=== PATIENT | female | born 1970 | race African-American/Black ===

== ENCOUNTER → 2017-07-24 | Outpatient (CLI) | payer BC ==
--- NOTE | 2017-07-24 09:15 | RADIOLOGY REPORT (SQ) ---
EXAM DESCRIPTION: MRI LUMBAR SPINE WITHOUT COMPLETED DATE/TIME: 07/24/2017 8:43 am REASON FOR STUDY: LUMBAGO WITH SCIATICA, RIGHT SIDE M54.41 LUMBAGO WITH SCIATICA, RIGHT SIDE COMPARISON: None. TECHNIQUE: Sagittal and Axial imaging includes T1, T2, STIR and gradient echo sequences. Coronal T2/ HASTE imaging. LIMITATIONS: None. FINDINGS: VISUALIZED UPPER ABDOMEN: Limited evaluation. No acute or suspicious findings suggested. SEGMENTATION: No transitional anatomy. The lowest well-developed disc space is labeled L5-S1. ALIGNMENT: Mild grade 1 listhesis at L4-5. VERTEBRAE: Intact. BONE MARROW: Normal. No marrow replacement or reactive changes. DISC SIGNAL: Normal. No significant abnormal signal or loss of height. POSTERIOR ELEMENTS: No pars defect appreciated. Lower lumbar degenerative facet overgrowth. HARDWARE: None in the spine. CORD AND CONUS: Normal in size and signal intensity. Conus at the appropriate level. SOFT TISSUES: No aortic aneurysm seen. No bulky retroperitoneal adenopathy or mass. No paraspinal mas s or fluid. L1-L2: No significant spinal stenosis or exit foraminal stenosis. L2-L3: No significant spinal stenosis or exit foraminal stenosis. L3-L4: No significant spinal stenosis or exit foraminal stenosis. L4-L5: Exuberant facet degenerative overgrowth. Mild central narrowing. L5-S1: Facet overgrowth. No central stenosis. Patent neural foramina. LOWER THORACIC: Incompletely imaged. No stenosis seen. SACRUM: Visualized upper sacrum intact. OTHER: No other significant findings. IMPRESSION: 1. Facet arthropathy, most pronounced at L4-5. Minimal grade 1 listhesis at this level . No evidence of significant spinal stenosis, however. Generally maintained discs throughout the john mbar and lower thoracic region. TECHNICAL DOCUMENTATION: JOB ID: [id number] [employer]- All Rights Reserved
== END ==
LOC: RAD 07:49
PROVIDERS: ATTEND Nurse Practitioner
DX: M54.41 Lumbago with sciatica, right side (principal); G89.29 Other chronic pain
CPT/HCPCS: 72148

== ENCOUNTER 2017-12-26 10:36 | Inpatient (IN) | payer BC ==
[2017-12-26] MEDS ORDERED: LIDOCAINE 2% VISCOUS SOLN 20 ML UDCUP PO ONE (11:11)
[2017-12-26] MEDS ORDERED: METOCLOPRAMIDE HCL ORAL SOLN 10 MG/10 ML UDCUP PO ONE (11:11)
[2017-12-26] MEDS ORDERED: IPRATROPIUM/ALBUTEROL 0.5-2.5 MG/3 ML AMPUL NEB ONE (11:11)
[2017-12-26] MEDS ORDERED: MAG HYDROX/AL HYDROX/SIMETH SUSP 30 ML UDCUP PO ONE (11:11)
[2017-12-26] MEDS ORDERED: PREDNISONE 20 MG TABLET PO ONE (11:13)
--- NOTE | 2017-12-26 11:15 | ER Document Report ---
ED General - General Chief Complaint: Chest Pain Stated Complaint: CHEST PAIN Time Seen by Provider: 12/26/17 11:11 Notes: Chief complaint: Epigastric pain History of complain:( obtained from----patient) 47 years old female with a history of allergic asthma, GERD, presents today with an episode of epigastric pain described as 5/10 prior to arrival, now 3/10 in intensity. It is burning in nature spreading substernally. Associated with nausea no vomiting. Denies any precordial pain left arm numbness tingling sensation. Denies any other constitutional symptoms. Onset: Since this morning Duration: Last few hours Severity: Mild to moderate Quality: Burning to dull Context: History of GERD Exacerbating factor and relieving factors: REVIEW OF SYSTEMS: CONSTITUTIONAL : Denies fever, chills, or sweats. Denies recent illness. EENT: Denies eye, ear, throat, or mouth pain or symptoms. Denies nasal or sinus congestion or discharge. Denies throat, tongue, or mouth swelling or difficulty swallowing. CARDIOVASCULAR: Denies chest pain. Denies palpitations or racing or irregular heart beat. Denies ankle edema. RESPIRATORY: Denies cough, cold, or chest congestion. Denies shortness of breath, difficulty breathing, or wheezing. GASTROINTESTINAL: Denies distention. Denies nausea, vomiting, or diarrhea. Denies blood in vomitus, stools, or per rectum. Denies black, tarry stools. Denies constipation. GENITOURINARY: Denies difficulty urinating, painful urination, burning, frequency, blood in urine, or discharge. FEMALE GENITOURINARY: Denies vaginal bleeding, heavy or abnormal periods, irregular periods. Denies vaginal discharge or odor. MUSCULOSKELETAL: Denies back or neck pain or stiffness. Denies joint pain or swelling. SKIN: Denies rash, lesions or sores. HEMATOLOGIC : Denies easy bruising or bleeding. LYMPHATIC: Denies swollen, enlarged glands. NEUROLOGICAL: Denies confusion or altered mental status. Denies passing out or loss of consciousness. Denies dizziness or lightheadedness. Denies headache. Denies weakness or paralysis or loss of use of either side. Denies problems with gait or speech. Denies sensory loss, numbness, or tingling. Denies seizures. PSYCHIATRIC: Denies anxiety or stress. Denies depression, suicidal ideation, or homicidal ideation. ALL OTHER SYSTEMS REVIEWED AND NEGATIVE. PHYSICAL EXAMINATION: GENERAL: Well-appearing, well-nourished and in no acute distress. Not seems to be in any acute distress HEAD: Atraumatic, normocephalic. EYES: Pupils equal round and reactive to light, extraocular movements intact, conjunctiva are normal. ENT: Nares patent, oropharynx clear without exudates. Moist mucous membranes. NECK: Normal range of motion, supple without lymphadenopathy LUNGS: Breath sounds clear to auscultation bilaterally and equal. No rales or rhonchi but diffuse expiratory wheeze mild to moderate HEART: Regular rate and rhythm without murmurs ABDOMEN: Soft, epigastric tenderness, nondistended abdomen. No guarding, no rebound. No masses appreciated. Examination of genitals-deferred Musculoskeletal: Normal range of motion, no pitting or edema. No cyanosis. NEUROLOGICAL: Cranial nerves grossly intact. Normal speech, normal gait. Normal sensory, motor exams PSYCH: Normal mood, normal affect. SKIN: Warm, Dry, normal turgor, no rashes or lesions noted. Dictation was performed using [employer] voice recognition software TRAVEL OUTSIDE OF THE [place] IN LAST 30 DAYS: No - Related Data Allergies/Adverse Reactions: clarithromycin [From Biaxin] Allergy (Verified 12/26/17 10:47) Past Medical History - Social History Smoking Status: Never Smoker Chew tobacco use (# tins/day): No Drug Abuse: None Family History: Reviewed & Not Pertinent Patient has suicidal ideation: No Patient has homicidal ideation: No Pulmonary Medical History: Reports: Hx Bronchitis, Hx Pneumonia Renal/ Medical History: Denies: Hx Peritoneal Dialysis Past Surgical History: Reports: Hx Section - 3, Hx Cholecystectomy, Hx Hysterectomy Physical Exam - Vital signs Vitals: Temp Pulse Resp BP Pulse Ox 97.7 F 73 18 159/91 H 96 12/26/17 10:50 12/26/17 10:50 12/26/17 10:50 12/26/17 10:50 12/26/17 10:50 Course - Vital Signs Vital signs: Temp Pulse Resp BP Pulse Ox 97.3 F 79 18 142/87 H 95 12/26/17 17:51 12/26/17 17:51 12/26/17 17:51 12/26/17 17:51 12/26/17 17:51 - Laboratory Result Diagrams: 12/26/17 11:50 12/26/17 11:50 Laboratory results interpreted by me: 12/26/17 12/26/17 12/26/17 11:50 11:50 11:50 WBC 18.6 H RBC 5.56 H Hgb 16.0 H Hct 49.4 H RDW 14.1 H Absolute Neutrophils 12.3 H Absolute Basophils 0.3 H BUN 23 H Glucose 131 H Calcium 10.8 H Total Protein 8.3 H Triglycerides 219 H Cholesterol 212.26 H VLDL Cholesterol 43.8 H Lipase 1273.3 H Discharge - Discharge Clinical Impression: Acute pancreatitis Qualifiers: Pancreatitis type: unspecified pancreatitis type Acute pancreatitis complication: unspecified Qualified Code(s): K85.90 - Acute pancreatitis without necrosis or infection, unspecified Condition: Good Disposition: ADMITTED INPATIENT
--- NOTE | 2017-12-26 12:10 | RADIOLOGY REPORT (SQ) ---
EXAM DESCRIPTION: CHEST 2 VIEWS COMPLETED DATE/TIME: 12/26/2017 11:47 am REASON FOR STUDY: Chest pain COMPARISON: 08/06/2015, 03/04/2008 EXAM PARAMETERS: NUMBER OF VIEWS: two views TECHNIQUE: Digital Frontal and Lateral radiographic views of the chest acquired. RADIATION DOSE: NA LIMITATIONS: none FINDINGS: LUNGS AND PLEURA: No opacities, masses or pneumothorax. No pleural effusion. MEDIASTINUM AND HILAR STRUCTURES: No masses or contour abnormalities. HEART AND VASCULAR STRUCTURES: Heart normal size. No evidence for failure. BONES: No acute findings. HARDWARE: None in the chest. OTHER: No other significant finding. IMPRESSION: NO ACUTE RADIOGRAPHIC FINDING IN THE CHEST. TECHNICAL DOCUMENTATION: JOB ID: [id number] [employer]- All Rights Reserved Reading location - IP/workstation name: [email or web address]
[2017-12-26 12:46] LABS: CREATINE KINASE MB 1.26 ng/mL (<4.55)
[2017-12-26 12:48] LABS: TROPONIN I < 0.012 ng/mL
--- NOTE | 2017-12-26 13:12 | ER Document Report ---
ED Cardiac - General Chief Complaint: Chest Pain Stated Complaint: CHEST PAIN Time Seen by Provider: 12/26/17 11:11 Notes: 47-year-old female patient to the emergency department chief complaint of chest pain. Chest pain located in the epigastric region. Radiates up into her chest. Started today. [place] like she was going to pass out but did not. Was sweaty. States that over the last month she has been having a large amount of night sweats but has been contributing to menopause. This seems to make it better or worse. Does not smoke drink or do drugs. Denies any major medical problems. TRAVEL OUTSIDE OF THE [place] IN LAST 30 DAYS: No - HPI Patient complains to provider of: Chest pain Use of: denies: Alcohol, Amphetamines, Bath salts, Caffeine, Cocaine, Decongestants, Other Was the onset of pain: Gradual Quality of pain: Intermittent, Sharp - Related Data Allergies/Adverse Reactions: clarithromycin [From Biaxin] Allergy (Verified 12/26/17 10:47) Past Medical History - General Information source: Patient - Social History Smoking Status: Former Smoker Chew tobacco use (# tins/day): No Frequency of alcohol use: None Drug Abuse: None Lives with: Spouse/Significant other Family History: Reviewed & Not Pertinent Patient has suicidal ideation: No Patient has homicidal ideation: No Pulmonary Medical History: Reports: Hx Bronchitis, Hx Pneumonia Renal/ Medical History: Denies: Hx Peritoneal Dialysis Past Surgical History: Reports: Hx Section - 3, Hx Cholecystectomy, Hx Hysterectomy Review of Systems - Review of Systems Constitutional: Diaphoresis. denies: Chills, Fever, Malaise EENT: No symptoms reported Cardiovascular: Chest pain. denies: Palpitations, Heart racing Respiratory: No symptoms reported Gastrointestinal: Abdominal pain. denies: Diarrhea, Nausea, Vomiting Genitourinary: No symptoms reported Female Genitourinary: No symptoms reported Musculoskeletal: No symptoms reported Skin: No symptoms reported Hematologic/Lymphatic: No symptoms reported Neurological/Psychological: No symptoms reported Physical Exam - Vital signs Vitals: Temp Pulse Resp BP Pulse Ox 97.7 F 73 18 159/91 H 96 12/26/17 10:50 12/26/17 10:50 12/26/17 10:50 12/26/17 10:50 12/26/17 10:50 Interpretation: Normal - General General appearance: Appears well, Alert - HEENT Head: Normocephalic, Atraumatic Eyes: Normal Pupils: PERRL - Respiratory Respiratory status: No respiratory distress Chest status: Nontender Breath sounds: Normal Chest palpation: Normal - Cardiovascular Rhythm: Regular Heart sounds: Normal auscultation Murmur: No - Abdominal Inspection: Normal Distension: No distension Bowel sounds: Normal Tenderness: Tender, Other - Mild tenderness to palpation in the epigastric region. No guarding. No rebound. Organomegaly: No organomegaly - Back Back: Normal, Nontender - Extremities General upper extremity: Normal inspection, Nontender, Normal color, Normal ROM , Normal temperature General lower extremity: Normal inspection, Nontender, Normal color, Normal ROM , Normal temperature, Normal weight bearing. No: Nataliia's sign - Neurological Neuro grossly intact: Yes Cognition: Normal Orientation: AAOx4 Enrrique Coma Scale Eye Opening: Spontaneous Enrrique Coma Scale Verbal: Oriented [place] Coma Scale Motor: Obeys Commands Enrrique Coma Scale Total: 15 Speech: Normal Motor strength normal: LUE, RUE, LLE, RLE Sensory: Normal - Psychological Associated symptoms: Normal affect, Normal mood - Skin Skin Temperature: Warm Skin Moisture: Dry Skin Color: Normal Course - Re-evaluation Re-evalutation: 12/26/17 15:05 Patient with elevated WBC count and elevated lipase. Consistent with pancreatitis. Will add CT scan, lipid panel. Will consult with hospitalist for admission at this time. Patient is n.p.o. - Vital Signs Vital signs: Temp Pulse Resp BP Pulse Ox 97.7 F 73 21 H 140/84 H 93 12/26/17 10:50 12/26/17 10:50 12/26/17 14:00 12/26/17 13:00 12/26/17 14:00 - Laboratory Result Diagrams: 12/26/17 11:50 12/26/17 11:50 Laboratory results interpreted by me: 12/26/17 12/26/17 11:50 11:50 WBC 18.6 H RBC 5.56 H Hgb 16.0 H Hct 49.4 H RDW 14.1 H Absolute Neutrophils 12.3 H Absolute Basophils 0.3 H BUN 23 H Glucose 131 H Calcium 10.8 H Total Protein 8.3 H Lipase 1273.3 H - EKG Interpretation by Or EKG shows normal: Sinus rhythm, [place], Intervals, QRS Complexes, ST-T Waves Discharge - Discharge Clinical Impression: Acute pancreatitis Qualifiers: Pancreatitis type: unspecified pancreatitis type Acute pancreatitis complication: unspecified Qualified Code(s): K85.90 - Acute pancreatitis without necrosis or infection, unspecified Condition: Good Disposition: ADMITTED INPATIENT Admitting Provider: Hospitalist Maria Teresa Kelley NP Unit Admitted: Medical Floor Referrals: BHARATH RICHARDS NP [Primary Care Provider] - Follow up as needed
[2017-12-26 13:32] LABS: ABSOLUTE BASOPHILS # (AUTO) 0.3 10^3/uL (0.0-0.2); ABSOLUTE EOSINOPHILS # (AUTO) 0.1 10^3/uL (0.0-0.6); ABSOLUTE LYMPHOCYTES (AUTO) 4.7 10^3/uL (0.5-4.7); ABSOLUTE MONOCYTES (AUTO) 1.2 10^3/uL (0.1-1.4); ABSOLUTE NEUT (AUTO) 12.3 10^3/uL (1.7-8.2); BASOPHILS % (AUTO) 1.4 % (0-2); EOSINOPHILS % (AUTO) 0.4 % (0-6); HEMATOCRIT 49.4 % (36.0-47.0); LYMPHOCYTES % (AUTO) 25.2 % (13-45); MEAN CORPUSCULAR HEMOGLOBIN 28.7 pg (27.0-33.4); MEAN CORPUSCULAR HGB CONC 32.3 g/dL (32.0-36.0); MEAN CORPUSCULAR VOLUME 89 fl (80-97); MONOCYTES % (AUTO) 6.7 % (3-13); PLATELET COUNT 329 10^3/uL (150-450); RED BLOOD COUNT 5.56 10^6/uL (3.72-5.28); RED CELL DISTRIBUTION WIDTH 14.1 % (11.5-14.0); SEGMENTED NEUTROPHILS % (AUTO) 66.3 % (42-78); TOTAL CELLS COUNTED % (AUTO) 100 %; WHITE BLOOD COUNT 18.6 10^3/uL (4.0-10.5)
[2017-12-26 13:42] LABS: ALANINE AMINOTRANSFERASE 32 U/L (9-52); ALBUMIN 4.8 g/dL (3.5-5.0); ALKALINE PHOSPHATASE 96 U/L (38-126); ANION GAP 15 (5-19); ASPARTATE AMINO TRANSFERASE 22 U/L (14-36); BILIRUBIN,DIRECT 0.4 mg/dL (0.0-0.4); BILIRUBIN,TOTAL 0.5 mg/dL (0.2-1.3); BLOOD UREA NITROGEN 23 mg/dL (7-20); CALCIUM 10.8 mg/dL (8.4-10.2); CARBON DIOXIDE 24 mmol/L (22-30); CHLORIDE 101 mmol/L (98-107); GLUCOSE 131 mg/dL (75-110); LIPASE 1273.3 U/L (23-300); POTASSIUM 4.6 mmol/L (3.6-5.0); SODIUM 139.8 mmol/L (137-145); TOTAL PROTEIN 8.3 g/dL (6.3-8.2)
[2017-12-26] MEDS ORDERED: MORPHINE SULFATE 10 MG/ML INJ IV ONE (14:34)
[2017-12-26] MEDS ORDERED: ONDANSETRON 4 MG TAB.RAPDIS PO ONE (14:34)
[2017-12-26] MEDS ORDERED: NORMAL SALINE 1000 ML 1,000 ML IV ONE (14:35)
[2017-12-26] MEDS ORDERED: DEXTROSE 5%-1/2 NORMAL SALINE 1,000 ML IV ONE (15:01)
[2017-12-26 15:35] LABS: CHOLESTEROL 212.26 mg/dL (0-200); TRIGLYCERIDES 219 mg/dL (<150)
[2017-12-26 15:46] LABS: DIRECT LDL 99 mg/dL (<100); VLDL CHOLESTEROL 43.8 mg/dL (10-31)
[2017-12-26] MEDS ORDERED: GLUCAGON,HUMAN RECOMB 1 MG INJ SUBCUT PRN (16:16)
[2017-12-26] MEDS ORDERED: DEXTROSE 40% GEL 15 GM TUBE PO PRN ×2 (16:16)
[2017-12-26] MEDS ORDERED: DEXTROSE 50%-WATER 25 GM/50 ML DISP.SYRIN IV PRN ×2 (16:16)
[2017-12-26] MEDS ORDERED: HYDROMORPHONE HCL INJ/PF 2 MG/ML AMPULE ONE (16:49)
--- NOTE | 2017-12-26 17:13 | PDOC H&P ---
History of Present Illness Admission Date/PCP: 12/26/17 16:16 BHARATH RICHARDS NP Patient complains of: Epigastric pain History of Present Illness: SERGIO RIVERA is a 47 year old female who presented to the emergency department today for epigastric/chest pain. She states that her pain began early this morning while she was at work. She describes her pain as sharp, intermittent, nonradiating localized to the epigastric/midsternal region. The patient did not take any medications to help alleviate her pain, she states that there is nothing that aggravates her symptoms either. She denies nausea, vomiting or diarrhea. She does endorse mild shortness of breath, but attributes that to a recent diagnosis of pneumonia, for which she was treated with a Z-Roverto/ doxycycline/Levaquin. Patient states she completed her antibiotic regimen 48 hours ago. PMH includes anxiety, chronic back pain, pneumonia. Denies alcohol or tobacco use. Upon arrival to the emergency department her vital signs are relatively normal. BP 159/91 HR 73 RR 18 T 97.7 SPO2 96% on RA. EKG demonstrated normal sinus rhythm, no evidence of acute infarction or ischemia. Initial troponin <0.012. CXR normal. Other significant lab work includes WBC 18, Lipase 1273. Remaining lab work was relatively benign. Symptomology and lab results suspicious for acute pancreatitis. The patient was treeated initially with 1L IVF bolus, IV morphine and ODT zofran. When evaluating for possible causes of pancreatitis, the patient does not have an ETOH abuse history, nor does she have a gallbladder. It is likely that this could be related to HYPERtriglyceridemia, or less likely HYPERcalcemia. Initial Cazenovia's Criteria is 1, scoring one point for leukocytosis. A score this low is affiliated with only 1% mortality rate. Patient still warrants admission to the hospital for close monitoring, will reevaluate Cazenovia criteria in 48 hours. Past Medical History Pulmonary Medical History: Reports: Bronchitis, Pneumonia Psychiatric Medical History: Reports: General Anxiety Disorder Past Surgical History Past Surgical History: Reports: Section - 3, Cholecystectomy, Hysterectomy, Other - PARTIAL HYSTERECTOMY - PATIENT STILL HAS OVARIES Social History Lives with: Spouse/Significant other Smoking Status: Former Smoker - Advance Directive Resuscitation Status: Full Code Family History Family History: Hypertension Parental Family History Reviewed: Yes Children Family History Reviewed: Yes Sibling(s) Family History Reviewed.: Yes Medication/Allergy Home Medications: Venlafaxine HCl ER [Effexor Xr 37.5 mg Cap.sr] 37.5 mg PO BID 12/26/17 Allergies/Adverse Reactions: clarithromycin [From Biaxin] Allergy (Verified 12/26/17 10:47) Review of Systems All systems: reviewed and no additional remarkable complaints except as stated Constitutional: PRESENT: headache(s) Eyes: ABSENT: visual disturbances Cardiovascular: PRESENT: chest pain - EPIGASTRIC PAIN Respiratory: PRESENT: dyspnea - recent history of PNA. patient just finished course of antibiotics 48hrs ago Gastrointestinal: PRESENT: abdominal pain. ABSENT: diarrhea, nausea, vomiting Neurological: PRESENT: as per HPI Psychiatric: PRESENT: anxiety - HISTORY Physical Exam Vital Signs: Temp Pulse Resp BP Pulse Ox 97.7 F 73 21 H 140/84 H 93 12/26/17 10:50 12/26/17 10:50 12/26/17 14:00 12/26/17 13:00 12/26/17 14:00 General appearance: PRESENT: no acute distress Eye exam: PRESENT: conjunctiva pink, PERRLA Mouth exam: PRESENT: moist Neck exam: PRESENT: full ROM Respiratory exam: PRESENT: clear to auscultation halima, symmetrical, unlabored. ABSENT: chest wall tenderness Cardiovascular exam: PRESENT: +S1, +S2 Pulses: PRESENT: normal radial pulses, normal dorsalis pedis pul GI/Abdominal exam: PRESENT: normal bowel sounds, soft, tenderness - EPIGASTRIC REGION Rectal exam: PRESENT: deferred Extremities exam: PRESENT: full ROM Musculoskeletal exam: PRESENT: ambulatory, full ROM Neurological exam: PRESENT: alert, awake, oriented to person, oriented to place , oriented to time, oriented to situation Psychiatric exam: PRESENT: appropriate affect Skin exam: PRESENT: dry, intact, warm Results Impressions: Chest X-Ray 12/26/17 11:12 IMPRESSION: NO ACUTE RADIOGRAPHIC FINDING IN THE CHEST. Status: Imported from PACS Assessment & Plan - Diagnosis (1) Acute pancreatitis Qualifiers: Pancreatitis type: unspecified pancreatitis type Acute pancreatitis complication: unspecified Qualified Code(s): K85.90 - Acute pancreatitis without necrosis or infection, unspecified Is this a current diagnosis for this admission?: Yes Plan: Patient presented with intermittent sharp epigastric pain that began just hours prior to her arrival Lipase 1273 indicative of pancreatitis. Patient denies ETOH use. Surgical history of cholecystectomy. This could likely be secondary to HYPERtriglyceridemia, or HYPERcalcemia. LFTs are WNL, plan to check cholesterol panel and ionized calcium. Plan for CT Abd/Pelvis. No evidence of organ failure. Patient is afebrile and nontoxic appearing. +Leukocytosis (WBC 18) Maintenance IVF. Will remain NPO for the time being. IV dilaudid PRN pain. Patient does not have a history of diabetes, but in the face of pancreatitis we will monitor Accu-Cheks every 6 hours Admission Cazenovia criteria: 1 - for leukocytosis (1% mortality) (2) Chest pain Qualifiers: Chest pain type: other chest pain Qualified Code(s): R07.89 - Other chest pain; R07.8 - Other chest pain Is this a current diagnosis for this admission?: Yes Plan: Patient presented to the emergency department complaining of epigastric/ midsternal chest pain Patient describes pain as intermittent, sharp, nonradiating. It is reproducible with palpation. EKG demonstrates normal sinus rhythm, no evidence of acute infarction or ischemia Initial troponin<0.012, continue to trend every 6 hours 3 We will continue to monitor for cardiac chest pain however at this time, I believe her epigastric pain is related to her pancreatitis. (3) Anxiety Is this a current diagnosis for this admission?: Yes Plan: Patient endorses history of anxiety Continue home dose effexor - Time Time Spent: 30 to 50 Minutes Medications reviewed and adjusted accordingly: Yes Anticipated discharge: Home - Inpatient Certification Based on my medical assessment, after consideration of the patient's comorbidities, presenting symptoms, or acuity I expect that the services needed warrant INPATIENT care.: Yes I certify that my determination is in accordance with my understanding of Medicare's requirements for reasonable and necessary INPATIENT services [42 CFR 412.3e].: Yes Medical Necessity: Risk of Complication if Not Cared For in Hospital - Plan Summary Plan Summary: Admit to hospitalist service. Consult GI. Supportive care.
[2017-12-26 17:17] LABS: CREATINE KINASE MB 1.22 ng/mL (<4.55)
[2017-12-26 17:19] LABS: TROPONIN I < 0.012 ng/mL
--- NOTE | 2017-12-26 18:05 | EKG REPORT ---
SEVERITY:- ABNORMAL ECG - SINUS RHYTHM PROBABLE LEFT ATRIAL ABNORMALITY NONSPECIFIC T ABNORMALITIES, ANT-LAT LEADS : Confirmed by: Maximino Browning 26-Dec-2017 18:04:52
--- NOTE | 2017-12-26 21:12 | RADIOLOGY REPORT (SQ) ---
EXAM DESCRIPTION: CT ABD/PELVIS WITH IV ORAL COMPLETED DATE/TIME: 12/26/2017 7:40 pm REASON FOR STUDY: abd pain COMPARISON: 03/15/2011 TECHNIQUE: CT scan of the abdomen and pelvis performed using helical scanning technique with dynamic intravenous contrast injection. No oral contrast. Images reviewed with lung, soft tissue, and bone windows. Reconstructed coronal and sagittal MPR images reviewed. Delayed images for evaluation of the urinary system also acquired. All images stored on PACS. All CT scanners at this facility use dose modulation, iterative reconstruction, and/or weight based d osing when appropriate to reduce radiation dose to as low as reasonably achievable (ALARA). [facility]: Dose Right [facility]: CareDose [facility]: Dose Right [facility]: Teradose 4D [facility]: Hippflow CONTRAST TYPE AND DOSE: contrast/concentration: Isovue 370.00 mg/ml; Total Contrast Delivered: 85.0 ml; Total Saline Delivered: 45.0 ml RENAL FUNCTION: GFR > 60. RADIATION DOSE: CT Rad equipment meets quality standard of care and radiation dose reduction techniq ues were employed. CTDIvol: 19.3 - 20.7 mGy. DLP: 2211 mGy-cm.. LIMITATIONS: None. FINDINGS: LOWER CHEST: No significant findings. No nodules or infiltrates. LIVER: Normal size. No masses. No dilated ducts. SPLEEN: Normal size. No focal lesions. PANCREAS: No masses. No significant calcifications. No adjacent inflammation or peripancreatic fluid collections. Pancreatic duct not dilated. GALLBLADDER: Surgically absent. ADRENAL GLANDS: No significant masses, similar left adrenal nodularity. RIGHT KIDNEY AND URETER: No solid masses. No significant calcifications. No hydronephrosis or hyd roureter. LEFT KIDNEY AND URETER: No solid masses. No significant calcifications. No hydronephrosis or hydr oureter. AORTA AND VESSELS: No aneurysm. No dissection. Renal arteries, SMA, celiac without stenosis. RETROPERITONEUM: No retroperitoneal adenopathy, hemorrhage or masses. BOWEL AND PERITONEAL CAVITY: No masses or inflammatory changes. No free fluid or peritoneal masses. APPENDIX: Normal. PELVIS: No mass. No free fluid. Normal bladder. ABDOMINAL WALL: No masses. No hernias. BONES: No acute findings. OTHER: No other significant finding. IMPRESSION: NO ACUTE FINDING IN THE ABDOMEN OR PELVIS ON CT SCAN WITH IV CONTRAST. TECHNICAL DOCUMENTATION: JOB ID: [id number] Quality ID # [id number]: Final reports with documentation of one or more dose reduction techniques (e.g., Au tomated exposure control, adjustment of the mA and/or kV according to patient size, use of iterative reconstruction technique) 2010 [employer]- All Rights Reserved Reading location - IP/workstation name: [email or web address]
[2017-12-26] MEDS: RINGERS SOLUTION,LACTATED 1,000 ML IV PRN (22:26)
[2017-12-26] MEDS: PANTOPRAZOLE SODIUM 40 MG VIAL IV SCH (22:26)
[2017-12-26 22:55] LABS: CREATINE KINASE MB 1.19 ng/mL (<4.55)
[2017-12-26 22:57] LABS: TROPONIN I < 0.012 ng/mL
[2017-12-27 05:00] LABS: ABSOLUTE EOSINOPHILS # (AUTO) 0.1 10^3/uL (0.0-0.6); ABSOLUTE LYMPHOCYTES (AUTO) 2.9 10^3/uL (0.5-4.7); ABSOLUTE MONOCYTES (AUTO) 0.7 10^3/uL (0.1-1.4); ABSOLUTE NEUT (AUTO) 7.8 10^3/uL (1.7-8.2); BASOPHILS % (AUTO) 0.4 % (0-2); HEMATOCRIT 44.4 % (36.0-47.0); HEMOGLOBIN 14.7 g/dL (12.0-15.5); MEAN CORPUSCULAR HEMOGLOBIN 29.1 pg (27.0-33.4); MEAN CORPUSCULAR HGB CONC 33.1 g/dL (32.0-36.0); MEAN CORPUSCULAR VOLUME 88 fl (80-97); MONOCYTES % (AUTO) 6.2 % (3-13); PLATELET COUNT 258 10^3/uL (150-450); RED BLOOD COUNT 5.04 10^6/uL (3.72-5.28); RED CELL DISTRIBUTION WIDTH 13.8 % (11.5-14.0); SEGMENTED NEUTROPHILS % (AUTO) 67.4 % (42-78); TOTAL CELLS COUNTED % (AUTO) 100 %; WHITE BLOOD COUNT 11.6 10^3/uL (4.0-10.5)
[2017-12-27 05:17] LABS: ALANINE AMINOTRANSFERASE 95 U/L (9-52); ALBUMIN 3.9 g/dL (3.5-5.0); ALKALINE PHOSPHATASE 71 U/L (38-126); AMYLASE 124 U/L (30-110); ANION GAP 12 (5-19); ASPARTATE AMINO TRANSFERASE 86 U/L (14-36); BILIRUBIN,DIRECT 0.3 mg/dL (0.0-0.4); BILIRUBIN,TOTAL 0.8 mg/dL (0.2-1.3); BLOOD UREA NITROGEN 21 mg/dL (7-20); CALCIUM 9.8 mg/dL (8.4-10.2); CARBON DIOXIDE 29 mmol/L (22-30); CHLORIDE 102 mmol/L (98-107); CREATINE KINASE 67 U/L (30-135); GLUCOSE 123 mg/dL (75-110); LIPASE 609.8 U/L (23-300); POTASSIUM 4.9 mmol/L (3.6-5.0); SODIUM 142.9 mmol/L (137-145); TOTAL PROTEIN 6.9 g/dL (6.3-8.2)
[2017-12-27 05:30] LABS: CREATINE KINASE MB 1.21 ng/mL (<4.55)
[2017-12-27 05:33] LABS: TROPONIN I < 0.012 ng/mL
[2017-12-27] MEDS: HYDROMORPHONE HCL INJ/PF 2 MG/ML AMPULE IV PRN ×3 (07:48→17:24)
[2017-12-27] MEDS: IPRATROPIUM/ALBUTEROL 0.5-2.5 MG/3 ML AMPUL NEB PRN (08:11)
[2017-12-27] MEDS: ENOXAPARIN SODIUM INJ 30 MG/0.3 ML DISP.SYRIN SUBCUT SCH (11:56)
[2017-12-27] MEDS: PANTOPRAZOLE SODIUM 40 MG VIAL IV SCH ×2 (12:03→21:23)
[2017-12-27] MEDS: RINGERS SOLUTION,LACTATED 1,000 ML IV PRN (17:31)
[2017-12-27] MEDS ORDERED: ONDANSETRON 4 MG TAB.RAPDIS PO PRN (17:41)
[2017-12-27 18:30] LABS: APPEARANCE,URINE SLIGHTLY-CLOUDY; BILIRUBIN,URINE NEGATIVE (NEGATIVE); COLOR,URINE YELLOW; GLUCOSE, URINE NEGATIVE (NEGATIVE); KETONES,URINE NEGATIVE (NEGATIVE); LEUKOCYTE ESTERASE,URINE LARGE (NEGATIVE); NITRITE,URINE NEGATIVE (NEGATIVE); PROTEIN,URINE NEGATIVE (NEGATIVE); URINE SPECIFIC GRAVITY 1.011; UROBILINOGEN,URINE NEGATIVE mg/dL (<2.0)
--- NOTE | 2017-12-27 20:50 | PDOC PROGRESS REPORT ---
Subjective Progress Note for:: 12/27/17 Subjective:: SERGIO RIVERA is a 47 year old female who presented to the emergency department today for epigastric/chest pain. She was admitted 12/25/2017 for acute pancreatitis. The patient was seen this morning on rounds, she is resting comfortably in bed on room air. She denies abdominal or chest pain, she states she is only "tender " to palpation in her epigastric region. Plan to advance diet from NPO to clear liquids today. Reason For Visit: PANCREATITIS Physical Exam Vital Signs: Temp Pulse Resp BP Pulse Ox 98.3 F 53 L 16 123/74 99 12/27/17 11:00 12/27/17 11:00 12/27/17 11:00 12/27/17 11:00 12/27/17 11:00 Intake & Output 12/26/17 12/27/17 12/28/17 06:59 06:59 06:59 Weight 107 kg General appearance: PRESENT: no acute distress Eye exam: PRESENT: conjunctiva pink, PERRLA Mouth exam: PRESENT: moist Neck exam: PRESENT: full ROM Respiratory exam: PRESENT: clear to auscultation halima, symmetrical, unlabored Cardiovascular exam: PRESENT: +S1, +S2 Pulses: PRESENT: normal radial pulses, normal dorsalis pedis pul GI/Abdominal exam: PRESENT: normal bowel sounds, soft. ABSENT: tenderness Rectal exam: PRESENT: deferred Extremities exam: PRESENT: full ROM Musculoskeletal exam: PRESENT: ambulatory, full ROM Neurological exam: PRESENT: alert, awake, oriented to person, oriented to place , oriented to time, oriented to situation Skin exam: PRESENT: dry, intact, warm Results Laboratory Results: 12/27/17 04:49 12/27/17 04:49 12/27/17 12/27/17 12/27/17 04:49 04:49 04:49 WBC 11.6 H RBC 5.04 Hgb 14.7 Hct 44.4 MCV 88 MCH 29.1 MCHC 33.1 RDW 13.8 Plt Count 258 Seg Neutrophils % 67.4 Lymphocytes % 25.0 Monocytes % 6.2 Eosinophils % 1.0 Basophils % 0.4 Absolute Neutrophils 7.8 Absolute Lymphocytes 2.9 Absolute Monocytes 0.7 Absolute Eosinophils 0.1 Absolute Basophils 0.0 Sodium 142.9 Potassium 4.9 Chloride 102 Carbon Dioxide 29 Anion Gap 12 BUN 21 H Creatinine 0.78 Est GFR ( Amer) > 60 Est GFR (Non-Af Amer) > 60 Glucose 123 H Calcium 9.8 Ionized Calcium Brad Total Bilirubin 0.8 AST 86 H ALT 95 H Alkaline Phosphatase 71 Total Protein 6.9 Albumin 3.9 Amylase 124 H Lipase 609.8 H TSH 4.40 12/27/17 04:49 WBC RBC Hgb Hct MCV MCH MCHC RDW Plt Count Seg Neutrophils % Lymphocytes % Monocytes % Eosinophils % Basophils % Absolute Neutrophils Absolute Lymphocytes Absolute Monocytes Absolute Eosinophils Absolute Basophils Sodium Potassium Chloride Carbon Dioxide Anion Gap BUN Creatinine Est GFR ( Amer) Est GFR (Non-Af Amer) Glucose Calcium Ionized Calcium Brad 1.19 Total Bilirubin AST ALT Alkaline Phosphatase Total Protein Albumin Amylase Lipase TSH 12/26/17 12/26/17 12/26/17 16:35 16:35 22:24 Creatine Kinase 82 70 CK-MB (CK-2) 1.22 Troponin I < 0.012 12/26/17 12/27/17 12/27/17 22:24 04:49 04:49 Creatine Kinase 67 CK-MB (CK-2) 1.19 1.21 Troponin I < 0.012 < 0.012 Impressions: Abdomen/Pelvis CT 12/26/17 00:00 IMPRESSION: NO ACUTE FINDING IN THE ABDOMEN OR PELVIS ON CT SCAN WITH IV CONTRAST. Chest X-Ray 12/26/17 11:12 IMPRESSION: NO ACUTE RADIOGRAPHIC FINDING IN THE CHEST. Status: Imported from PACS Assessment & Plan - Diagnosis (1) Acute pancreatitis Qualifiers: Pancreatitis type: unspecified pancreatitis type Acute pancreatitis complication: unspecified Qualified Code(s): K85.90 - Acute pancreatitis without necrosis or infection, unspecified Is this a current diagnosis for this admission?: Yes Plan: Improving. Patient presented with intermittent sharp epigastric pain that began just hours prior to her arrival Lipase trending down 1273->603. Lipase greater than 3x the upper limit of normal is indicative of pancreatitis. Patient denies ETOH use. Surgical history of cholecystectomy. Calcium levels within normal limits. Triglycerides [address] Abd/Pelvis benign No evidence of organ failure. Patient is afebrile and nontoxic appearing. +Leukocytosis (WBC 11) Maintenance IVF. Will remain NPO for the time being. IV dilaudid PRN pain. Patient does not have a history of diabetes, but in the face of pancreatitis we will monitor Accu-Cheks every 6 hours Admission Rodrigo criteria: 1 - for leukocytosis (1% mortality) (2) Chest pain Qualifiers: Chest pain type: other chest pain Qualified Code(s): R07.89 - Other chest pain; R07.8 - Other chest pain Is this a current diagnosis for this admission?: Yes Plan: Resolved. Patient presented to the emergency department complaining of epigastric/ midsternal chest pain Patient described pain as intermittent, sharp, nonradiating. It was reproducible with palpation. EKG demonstrates normal sinus rhythm, no evidence of acute infarction or ischemia Serial troponin<0.012, no longer trending We will continue to monitor for cardiac chest pain however at this time, I believe her epigastric pain is related to her pancreatitis. (3) Anxiety Is this a current diagnosis for this admission?: Yes Plan: Patient endorses history of anxiety Continue home dose effexor (4) UTI (urinary tract infection) Qualifiers: Urinary tract infection type: acute cystitis Is this a current diagnosis for this admission?: Yes Plan: Urinalysis indicative of UTI Urine culture pending Patient denies dysuria Initiate Macrobid - Time Time Spent with patient: 15-24 minutes Medications reviewed and adjusted accordingly: Yes Anticipated discharge: Home Within: within 48 hours - Inpatient Certification Based on my medical assessment, after consideration of the patient's comorbidities, presenting symptoms, or acuity I expect that the services needed warrant INPATIENT care.: Yes I certify that my determination is in accordance with my understanding of Medicare's requirements for reasonable and necessary INPATIENT services [42 CFR 412.3e].: Yes Medical Necessity: Risk of Complication if Not Cared For in Hospital - Plan Summary Plan Summary: Plan to discharge home in 24-48 hours. Follow-up with plodder operator.
[2017-12-27] MEDS: NITROFURANTOIN MONOHYD/M-CRYST 100 MG CAPSULE PO SCH (22:00)
[2017-12-28] MEDS: RINGERS SOLUTION,LACTATED 1,000 ML IV PRN ×2 (02:30→21:11)
[2017-12-28 05:28] LABS: HEMATOCRIT 44.9 % (36.0-47.0); MEAN CORPUSCULAR HEMOGLOBIN 29.4 pg (27.0-33.4); MEAN CORPUSCULAR HGB CONC 33.4 g/dL (32.0-36.0); MEAN CORPUSCULAR VOLUME 88 fl (80-97); PLATELET COUNT 263 10^3/uL (150-450); RED CELL DISTRIBUTION WIDTH 13.8 % (11.5-14.0); WHITE BLOOD COUNT 7.3 10^3/uL (4.0-10.5)
[2017-12-28 05:55] LABS: ANION GAP 9 (5-19); BLOOD UREA NITROGEN 17 mg/dL (7-20); C-REACTIVE PROTEIN 7.4 mg/L (<10.0); CALCIUM 9.9 mg/dL (8.4-10.2); CARBON DIOXIDE 30 mmol/L (22-30); CHLORIDE 103 mmol/L (98-107); GLUCOSE 114 mg/dL (75-110); LIPASE 341.7 U/L (23-300); PHOSPHORUS 4.8 mg/dL (2.5-4.5); POTASSIUM 4.8 mmol/L (3.6-5.0)
[2017-12-28] MEDS: PANTOPRAZOLE SODIUM 40 MG VIAL IV SCH ×2 (10:12→21:11)
[2017-12-28] MEDS: ENOXAPARIN SODIUM INJ 30 MG/0.3 ML DISP.SYRIN SUBCUT SCH (10:12)
[2017-12-28] MEDS: NITROFURANTOIN MONOHYD/M-CRYST 100 MG CAPSULE PO SCH ×2 (10:12→21:11)
[2017-12-28] MEDS: IPRATROPIUM/ALBUTEROL 0.5-2.5 MG/3 ML AMPUL NEB PRN (12:48)
[2017-12-28] MEDS ORDERED: ALBUTEROL SULFATE 0.042% NEB (1.25 MG/3 ML) AMPUL NEB ONE (14:00)
[2017-12-29] MEDS: RINGERS SOLUTION,LACTATED 1,000 ML IV PRN (05:17)
[2017-12-29] MEDS: IPRATROPIUM/ALBUTEROL 0.5-2.5 MG/3 ML AMPUL NEB PRN (08:18)
[2017-12-29] MEDS: PANTOPRAZOLE SODIUM 40 MG VIAL IV SCH (10:57)
[2017-12-29] MEDS: NITROFURANTOIN MONOHYD/M-CRYST 100 MG CAPSULE PO SCH (10:57)
[2017-12-29] MEDS: ENOXAPARIN SODIUM INJ 30 MG/0.3 ML DISP.SYRIN SUBCUT SCH (10:57)
[2017-12-29 13:12] VITALS: BP 142/87
--- NOTE | 2018-01-01 08:55 | PDOC PROGRESS REPORT ---
Subjective Progress Note for:: 12/28/17 Subjective:: SERGIO RIVERA is a 47 year old female who presented to the emergency department today for epigastric/chest pain. She was admitted 12/25/2017 for acute pancreatitis. The patient was seen this morning on rounds, she is resting comfortably in bed on room air. She denies abdominal or chest pain, she states she is only "tender " to palpation in her epigastric region.The patient started on clear liquids yeaterday, but became very nasueated and vomited x1. Remained NPO overnight, will re-try advancing diet to clear liquids again. Reason For Visit: PANCREATITIS Physical Exam Vital Signs: Temp Pulse Resp BP Pulse Ox 98.5 F 70 14 142/87 H 99 12/29/17 13:12/29/17 13:12/29/17 13:09 12/29/17 13:12/29/17 13:09 General appearance: PRESENT: no acute distress, well-developed, well-nourished Head exam: PRESENT: atraumatic, normocephalic Eye exam: PRESENT: conjunctiva pink, EOMI, PERRLA. ABSENT: scleral icterus Ear exam: PRESENT: normal external ear exam Mouth exam: PRESENT: moist, tongue midline Neck exam: ABSENT: carotid bruit, JVD, lymphadenopathy, thyromegaly Respiratory exam: PRESENT: clear to auscultation halima. ABSENT: rales, rhonchi, wheezes Cardiovascular exam: PRESENT: RRR. ABSENT: diastolic murmur, rubs, systolic murmur Pulses: PRESENT: normal dorsalis pedis pul Vascular exam: PRESENT: normal capillary refill GI/Abdominal exam: PRESENT: normal bowel sounds, soft, tenderness - EPIGASTRIC AREA. ABSENT: distended, guarding, mass, organolmegaly, rebound Rectal exam: PRESENT: deferred Extremities exam: PRESENT: full ROM. ABSENT: calf tenderness, clubbing, pedal edema Neurological exam: PRESENT: alert, awake, oriented to person, oriented to place , oriented to time, oriented to situation, CN II-XII grossly intact. ABSENT: motor sensory deficit Psychiatric exam: PRESENT: appropriate affect, normal mood. ABSENT: homicidal ideation, suicidal ideation Skin exam: PRESENT: dry, intact, warm. ABSENT: cyanosis, rash Results Laboratory Results: 12/28/17 04:50 12/28/17 04:50 12/26/17 12/26/17 12/26/17 16:35 16:35 22:24 Creatine Kinase 82 70 CK-MB (CK-2) 1.22 Troponin I < 0.012 12/26/17 12/27/17 12/27/17 22:24 04:49 04:49 Creatine Kinase 67 CK-MB (CK-2) 1.19 1.21 Troponin I < 0.012 < 0.012 Impressions: Abdomen/Pelvis CT 12/26/17 00:00 IMPRESSION: NO ACUTE FINDING IN THE ABDOMEN OR PELVIS ON CT SCAN WITH IV CONTRAST. Chest X-Ray 12/26/17 11:12 IMPRESSION: NO ACUTE RADIOGRAPHIC FINDING IN THE CHEST. Status: Imported from PACS Assessment & Plan - Diagnosis (1) Acute pancreatitis Qualifiers: Pancreatitis type: unspecified pancreatitis type Acute pancreatitis complication: unspecified Qualified Code(s): K85.90 - Acute pancreatitis without necrosis or infection, unspecified Is this a current diagnosis for this admission?: Yes Plan: Improving. Patient presented with intermittent sharp epigastric pain that began just hours prior to her arrival Lipase trending down 1273->603. Lipase greater than 3x the upper limit of normal is indicative of pancreatitis. Patient denies ETOH use. Surgical history of cholecystectomy. Calcium levels within normal limits. Triglycerides [address] Abd/Pelvis benign No evidence of organ failure. Patient is afebrile and nontoxic appearing. Leukocytosis improved (WBC 7) Maintenance IVF. IV dilaudid PRN pain. Patient does not have a history of diabetes, but in the face of pancreatitis we will monitor Accu-Cheks every 6 hours. Attempted to advance PO diet yesterday, but patient became nauseated and vomited x 1. She remained NPO overnight, will attempt clear liquids again today. Admission Rodrigo criteria: 1 - for leukocytosis (1% mortality) (2) Chest pain Qualifiers: Chest pain type: other chest pain Qualified Code(s): R07.89 - Other chest pain; R07.8 - Other chest pain Is this a current diagnosis for this admission?: Yes Plan: Resolved. Patient presented to the emergency department complaining of epigastric/ midsternal chest pain Patient described pain as intermittent, sharp, nonradiating. It was reproducible with palpation. EKG demonstrates normal sinus rhythm, no evidence of acute infarction or ischemia Serial troponin<0.012, no longer trending We will continue to monitor for cardiac chest pain however at this time, I believe her epigastric pain is related to her pancreatitis. (3) Anxiety Is this a current diagnosis for this admission?: Yes Plan: Patient endorses history of anxiety Continue home dose effexor (4) UTI (urinary tract infection) Qualifiers: Urinary tract infection type: acute cystitis Is this a current diagnosis for this admission?: Yes Plan: Urinalysis indicative of UTI Urine culture pending Patient denies dysuria Day 2 of PO Macrobid - Time Time Spent with patient: 15-24 minutes Medications reviewed and adjusted accordingly: Yes Anticipated discharge: Home Within: within 24 hours - Inpatient Certification Based on my medical assessment, after consideration of the patient's comorbidities, presenting symptoms, or acuity I expect that the services needed warrant INPATIENT care.: Yes I certify that my determination is in accordance with my understanding of Medicare's requirements for reasonable and necessary INPATIENT services [42 CFR 412.3e].: Yes Medical Necessity: Risk of Complication if Not Cared For in Hospital - Plan Summary Plan Summary: IF ABLE TO TOLERATE PO DIET, LIKELY D/C HOME WITHIN 24 HOURS
--- NOTE | 2018-01-01 09:24 | PDOC DISCHARGE SUMMARY ---
General - Admit/Disc Date/PCP Admission Date/Primary Care Provider: 12/26/17 16:16 BHARATH RICHARDS NP Discharge Date: 12/29/17 - Discharge Diagnosis (1) Acute pancreatitis Is this a current diagnosis for this admission?: Yes (2) Chest pain Is this a current diagnosis for this admission?: Yes (3) Anxiety Is this a current diagnosis for this admission?: Yes (4) UTI (urinary tract infection) Is this a current diagnosis for this admission?: Yes - Additional Information Resuscitation Status: Full Code Discharge Diet: As Tolerated Discharge Activity: Activity As Tolerated Prescriptions: Nitrofurantoin Monohyd/M-Cryst [Macrobid 100 mg Capsule] 100 mg PO Q12 #6 capsule Ondansetron [Zofran Odt] 4 mg PO Q6HP PRN #15 tab.rapdis PRN Reason: Tramadol HCl 50 mg PO Q6HP PRN #15 tablet PRN Reason: Home Medications: Venlafaxine HCl ER [Effexor Xr 37.5 mg Cap.sr] 37.5 mg PO BID 12/26/17 Nitrofurantoin Monohyd/M-Cryst [Macrobid 100 mg Capsule] 100 mg PO Q12 #6 capsule 12/29/17 Ondansetron [Zofran Odt] 4 mg PO Q6HP PRN #15 tab.rapdis 12/29/17 Tramadol HCl 50 mg PO Q6HP PRN #15 tablet 12/29/17 History of Present Illness History of Present Illness: SERGIO RIVERA is a 47 year old female who presented to the emergency department today for epigastric/chest pain. She states that her pain began early this morning while she was at work. She describes her pain as sharp, intermittent, nonradiating localized to the epigastric/midsternal region. The patient did not take any medications to help alleviate her pain, she states that there is nothing that aggravates her symptoms either. She denies nausea, vomiting or diarrhea. She does endorse mild shortness of breath, but attributes that to a recent diagnosis of pneumonia, for which she was treated with a Z-Roverto/ doxycycline/Levaquin. Patient states she completed her antibiotic regimen 48 hours ago. PMH includes anxiety, chronic back pain, pneumonia. Denies alcohol or tobacco use. Upon arrival to the emergency department her vital signs are relatively normal. BP 159/91 HR 73 RR 18 T 97.7 SPO2 96% on RA. EKG demonstrated normal sinus rhythm, no evidence of acute infarction or ischemia. Initial troponin <0.012. CXR normal. Other significant lab work includes WBC 18, Lipase 1273. Remaining lab work was relatively benign. Symptomology and lab results suspicious for acute pancreatitis. The patient was treeated initially with 1L IVF bolus, IV morphine and ODT zofran. When evaluating for possible causes of pancreatitis, the patient does not have an ETOH abuse history, nor does she have a gallbladder. It is likely that this could be related to HYPERtriglyceridemia, or less likely HYPERcalcemia. Initial Rodrigo's Criteria is 1, scoring one point for leukocytosis. A score this low is affiliated with only 1% mortality rate. Patient still warrants admission to the hospital for close monitoring, will reevaluate Rodrigo criteria in 48 hours. Hospital Course Hospital Course: 47 y.o. very pleasant female who presented to the emergency department with epigastric pain. Lipase was greater than 3x the upper limit of normal (1239), indicative of pancreatitis. Patient denies ETOH use. Surgical history of cholecystectomy. Calcium levels within normal limits. +Leukocytosis (WBC 18.7). Triglycerides 222. LFTs were WNL. CT Abd/Pelvis benign - no evidence of pseudocyst, abscess, or necrosis. No evidence of organ failure. The patient remained afebrile and nontoxic appearing. The patient's urinalysis was suspicious for UTI, so she was placed on PO Macrobid. She was admitted to a medical floor under the hospitalist service. Admission [place] criteria: 1 - for leukocytosis (1% mortality). The patient reported that she was currently receiving estrogen injections to help alleviate her menopause symptoms. The more common causes of pancreatitis ( obstructing gallstones, HYPERtriglyceridemia, HYPERcalcemia, ETOH use) were ruled out. It is possible that the patient was experiencing drug induced pancreatitis. Over the 4 days she was inpatient at [facility], the patient's pain improved and her lipase levels decreased. The patient did not have a history of diabetes, but in the face of pancreatitis we monitored her Accu-Cheks, which remained WNL. She was eventually able to tolerate a PO diet without feeling nauseated. Given her mild case of pancreatitis she did not require treatment with pancrease. The patient was discharged home with prescriptions for pain and anti- nausea medications. She was also sent home with a prescription for Macrokurtd to complete a 5 day course of antibiotic treatment for her UTI. The patient was offered a referral to a cell tender helper, and encouraged to follow up as soon as possible. She was notified that her symptoms could be related to drug induced pancreatitis, but there could also be structural abnormalities that are causing her pancreatitis. The discharge instructions were explained thoroughly and the patient stated understanding. Physical Exam Vital Signs: Temp Pulse Resp BP Pulse Ox 98.5 F 70 14 142/87 H 99 12/29/17 13:09 12/29/17 13:09 12/29/17 13:09 12/29/17 13:09 12/29/17 13:09 Results Laboratory Results: 12/28/17 04:50 12/28/17 04:50 12/26/17 12/26/17 12/26/17 16:35 16:35 22:24 Creatine Kinase 82 70 CK-MB (CK-2) 1.22 Troponin I < 0.012 12/26/17 12/27/17 12/27/17 22:24 04:49 04:49 Creatine Kinase 67 CK-MB (CK-2) 1.19 1.21 Troponin I < 0.012 < 0.012 Impressions: Abdomen/Pelvis CT 12/26/17 00:00 IMPRESSION: NO ACUTE FINDING IN THE ABDOMEN OR PELVIS ON CT SCAN WITH IV CONTRAST. Chest X-Ray 12/26/17 11:12 IMPRESSION: NO ACUTE RADIOGRAPHIC FINDING IN THE CHEST. Status: Imported from PACS Qualifiers - * PATIENT BEING DISCHARGED WITH ANY OF THE FOLLOWING DIAGNOSIS: No Plan Discharge Plan: DISCHARGE HOME WITH FOLLOW UP TO CRITICAL POWER INSTALL TECHNICIAN Time Spent: Less than 30 Minutes
== END 2017-12-29 13:48 | disposition home or self-care (01) | DRG 439 ==
LOC: ER 10:36 → UNDOADMIN 15:09 → EH 15:09 → 5 17:11
PROVIDERS: ADMIT Emergency Medicine; ATTEND Emergency Medicine
PROC: 3E0F73Z Introduction of Anti-inflammatory into Respiratory Tract, Via Natural or Artificial Opening (ICD-10-PCS; principal; 2017-12-27)
DX: K85.90 Acute pancreatitis without necrosis or infection, unspecified (principal); N30.00 Acute cystitis without hematuria; F41.9 Anxiety disorder, unspecified; G89.29 Other chronic pain; M54.9 Dorsalgia, unspecified; F41.1 Generalized anxiety disorder; Z88.3 Allergy status to other anti-infective agents; Z79.899 Other long term (current) drug therapy; Z90.49 Acquired absence of other specified parts of digestive tract; Z78.0 Asymptomatic menopausal state; Z90.710 Acquired absence of both cervix and uterus; Z87.891 Personal history of nicotine dependence; Z82.49 Family history of ischemic heart disease and other diseases of the circulatory system
CPT/HCPCS: 36415; 71046; 74177; 80048; 80053; 80061; 81001; 82150; 82330; 82550; 82553; 82962; 83615; 83690; 83735; 84100; 84443; 84484; 85025; 85027; 86140; 86701; 87086; 93005; 93010; 94640; 99285; J1170; J1650; J2270; J3490; J7120; J7620; J8499; S0119; S0164

== ENCOUNTER 2018-01-06 18:28 | Emergency (ER) | payer BC ==
[2018-01-06] MEDS ORDERED: ASPIRIN 81 MG TABLET, CHEWABLE PO ONE (20:03)
[2018-01-06 20:18] LABS: ABSOLUTE BASOPHILS # (AUTO) 0.1 10^3/uL (0.0-0.2); ABSOLUTE EOSINOPHILS # (AUTO) 0.2 10^3/uL (0.0-0.6); ABSOLUTE LYMPHOCYTES (AUTO) 3.3 10^3/uL (0.5-4.7); ABSOLUTE MONOCYTES (AUTO) 0.8 10^3/uL (0.1-1.4); ABSOLUTE NEUT (AUTO) 1.7 10^3/uL (1.7-8.2); BASOPHILS % (AUTO) 2.2 % (0-2); EOSINOPHILS % (AUTO) 2.7 % (0-6); HEMATOCRIT 40.8 % (36.0-47.0); HEMOGLOBIN 13.7 g/dL (12.0-15.5); LYMPHOCYTES % (AUTO) 54.6 % (13-45); MEAN CORPUSCULAR HEMOGLOBIN 29.7 pg (27.0-33.4); MEAN CORPUSCULAR HGB CONC 33.6 g/dL (32.0-36.0); MEAN CORPUSCULAR VOLUME 89 fl (80-97); MONOCYTES % (AUTO) 12.5 % (3-13); PLATELET COUNT 265 10^3/uL (150-450); RED CELL DISTRIBUTION WIDTH 13.5 % (11.5-14.0); TOTAL CELLS COUNTED % (AUTO) 100 %; WHITE BLOOD COUNT 6.1 10^3/uL (4.0-10.5)
[2018-01-06] MEDS ORDERED: MORPHINE SULFATE 10 MG/ML INJ IV ONE (20:21)
[2018-01-06] MEDS ORDERED: ONDANSETRON 4 MG TAB.RAPDIS PO ONE (20:21)
--- NOTE | 2018-01-06 20:23 | ER Document Report ---
ED General - General Chief Complaint: Chest Pain Stated Complaint: CHEST PAIN Time Seen by Provider: 01/06/18 20:11 Notes: Patient is a 47-year-old female who comes emergency department for chief complaint of pain in the center of her chest, pains extends down to the top of her abdomen and comes up to the middle of her chest, does not radiate to the back or sides, is constant and worse since this morning. She states she has had it intermittently since she was discharged 1 week ago after she was evaluated here for chest pain and diagnosed with pancreatitis. She denies alcohol, she has had a cholecystectomy, hysterectomy, she does not smoke, she denies lcln-znp-rxwzygu anti-inflammatories, she states the only change recently was steroid back injections and steroids by mouth after bronchitis. She denies nausea vomiting, fever or chills, dizziness, shortness of breath. No personal or family history of MA. Discharged home with nausea and pain management but does not take any other scripts reportedly. TRAVEL OUTSIDE OF THE [place] IN LAST 30 DAYS: No - Related Data Allergies/Adverse Reactions: clarithromycin [From [employer]] Allergy (Verified 01/06/18 18:29) Past Medical History - General Information source: Patient - Social History Smoking Status: Former Smoker Frequency of alcohol use: None Lives with: Family Family History: Reviewed & Not Pertinent Patient has suicidal ideation: No Patient has homicidal ideation: No Pulmonary Medical History: Reports: Hx Bronchitis, Hx Pneumonia Renal/ Medical History: Denies: Hx Peritoneal Dialysis Psychiatric Medical History: Reports: Hx Depression Past Surgical History: Reports: Hx Section - 3, Hx Cholecystectomy, Hx Hysterectomy, Other - PARTIAL HYSTERECTOMY - PATIENT STILL HAS OVARIES Review of Systems - Review of Systems Constitutional: No symptoms reported EENT: No symptoms reported Cardiovascular: See HPI Respiratory: No symptoms reported Gastrointestinal: See HPI Genitourinary: No symptoms reported Female Genitourinary: No symptoms reported Musculoskeletal: No symptoms reported Skin: No symptoms reported Hematologic/Lymphatic: No symptoms reported Neurological/Psychological: No symptoms reported Physical Exam - Vital signs Vitals: Temp Pulse Resp BP Pulse Ox 98.7 F 72 18 150/90 H 100 01/06/18 18:36 01/06/18 18:36 01/06/18 18:36 01/06/18 18:36 01/06/18 18:36 - Notes Notes: GENERAL: Alert, interacts well. No acute distress. HEAD: Normocephalic, atraumatic. EYES: Pupils equal, round, and reactive to light. Extraocular movements intact. ENT: Oral mucosa moist, tongue midline. NECK: Full range of motion. Supple. Trachea midline. LUNGS: Clear to auscultation bilaterally, no wheezes, rales, or rhonchi. No respiratory distress. HEART: Regular rate and rhythm. No murmur ABDOMEN: Tenderness in the epigastric and left upper quadrant areas on exam. Non -distended. Bowel sounds present in all 4 quadrants. EXTREMITIES: Moves all 4 extremities spontaneously. No edema, normal radial and dorsalis pedis pulses bilaterally. No cyanosis. BACK: no cervical, thoracic, lumbar midline tenderness. No saddle anesthesia, normal distal neurovascular exam. NEUROLOGICAL: Alert and oriented x3. Normal speech. [cranial nerves II through XII grossly intact]. PSYCH: Normal affect, normal mood. SKIN: Warm, dry, normal turgor. No rashes or lesions noted. Course - Re-evaluation Re-evalutation: EKG sinus rhythm with no T-wave inversions or ST segment changes in consecutive leads. CBC, chemistry unremarkable, lipase is actually normal this time. Troponin obtained at cycled and is unremarkable. Patient's pain is actually in the epigastric area and left upper quadrant on examination. She has completed a large amount of steroids recently reportedly, no cause of her pancreatitis was found, she has had a cholecystectomy, I have very low suspicion of ACS based on her symptoms, exam, and workups. She also has persistent pain which after given pain medicine and Carafate along with Pepcid resolved. Patient is tolerating p.o. without difficulty. Symptoms are worse when she eats. Appears to be gastrointestinal in nature, she has already been referred to gastroenterology but has not been able to see them yet. Discussed all details with patient, discussed recommendations, follow-up, and return precautions. Patient and his significant other state satisfaction and agreement. Stable at time of discharge. - Vital Signs Vital signs: Temp Pulse Resp BP Pulse Ox 97.7 F 72 15 130/75 H 99 01/06/18 22:42 01/06/18 18:36 01/06/18 22:40 01/06/18 22:40 01/06/18 22:40 - Laboratory Result Diagrams: 01/06/18 19:55 01/06/18 19:55 Laboratory results interpreted by me: 01/06/18 01/06/18 19:55 19:55 Seg Neutrophils % 28.0 L Lymphocytes % 54.6 H Basophils % 2.2 H Glucose 132 H Creatine Kinase 256 H Discharge - Discharge Clinical Impression: Epigastric pain Condition: Stable Disposition: HOME, SELF-CARE Additional Instructions: Your workup today does not show any concerning abnormality, your lipase checking her pancreas was normal. Because of your recent steroids, location of your pain, and workup to this point I suspect your symptoms are from inflammation of your upper abdominal tract, probably gastritis. Take Carafate, Pepcid as prescribed, continue bland diet, follow-up with the gastroenterology referral for additional evaluation and management. Return if you worsen including vomiting, vomiting blood, severe pain, black stools, or any other concerning or worsening symptoms. Prescriptions: Famotidine [Pepcid 20 mg Tablet] 20 mg PO BID #20 tablet Ondansetron [Zofran Odt 4 mg Tablet] 1 - 2 tab PO Q4H PRN #15 tab.rapdis PRN Reason: For Nausea/Vomiting Sucralfate [Carafate 1 gm Tablet] 1 gm PO QID #20 tablet Referrals: RAVI MCMAHON MD [ACTIVE STAFF] - Follow up in 1 week EMELY GRIMES MD [ACTIVE STAFF] - Follow up in 1 week
[2018-01-06 20:33] LABS: ALANINE AMINOTRANSFERASE 33 U/L (9-52); ALKALINE PHOSPHATASE 68 U/L (38-126); ANION GAP 9 (5-19); ASPARTATE AMINO TRANSFERASE 30 U/L (14-36); BILIRUBIN,DIRECT 0.3 mg/dL (0.0-0.4); BILIRUBIN,TOTAL 0.3 mg/dL (0.2-1.3); BLOOD UREA NITROGEN 18 mg/dL (7-20); CALCIUM 9.8 mg/dL (8.4-10.2); CARBON DIOXIDE 27 mmol/L (22-30); CHLORIDE 107 mmol/L (98-107); CREATINE KINASE 256 U/L (30-135); GLUCOSE 132 mg/dL (75-110); POTASSIUM 4.6 mmol/L (3.6-5.0); SODIUM 142.9 mmol/L (137-145); TOTAL PROTEIN 6.8 g/dL (6.3-8.2)
[2018-01-06 20:47] LABS: CREATINE KINASE MB 1.45 ng/mL (<4.55)
[2018-01-06 20:48] LABS: TROPONIN I < 0.012 ng/mL
[2018-01-06] MEDS ORDERED: FENTANYL CITRATE INJ/PF 100 MCG/2 ML AMPUL IV ONE (20:53)
--- NOTE | 2018-01-06 21:09 | RADIOLOGY REPORT (SQ) ---
EXAM DESCRIPTION: CHEST SINGLE VIEW COMPLETED DATE/TIME: 01/06/2018 8:28 pm REASON FOR STUDY: chest pain COMPARISON: 12/26/2017 EXAM PARAMETERS: NUMBER OF VIEWS: One view. TECHNIQUE: Single frontal radiographic view of the chest acquired. RADIATION DOSE: NA LIMITATIONS: None. FINDINGS: LUNGS AND PLEURA: No acute opacities, masses or pneumothorax. No pleural effusion. MEDIASTINUM AND HILAR STRUCTURES: No masses. Contour normal. HEART AND VASCULAR STRUCTURES: Heart normal in size. Normal vasculature. BONES: No acute findings. HARDWARE: None in the chest. OTHER: No other significant finding. IMPRESSION: NO ACUTE RADIOGRAPHIC FINDING IN THE CHEST. TECHNICAL DOCUMENTATION: JOB ID: [id number] [id number] 2010 [employer]- All Rights Reserved Reading location - IP/workstation name: [email or web address]
[2018-01-06] MEDS ORDERED: MORPHINE SULFATE IR 15 MG TABLET PO ONE (21:24)
[2018-01-06] MEDS ORDERED: FAMOTIDINE 20 MG TABLET PO ONE (21:24)
[2018-01-06] MEDS ORDERED: SUCRALFATE 1 GM TABLET PO ONE (21:24)
[2018-01-06 22:44] VITALS: BP 130/75
--- NOTE | 2018-01-07 07:47 | EKG REPORT ---
SEVERITY:- BORDERLINE ECG - SINUS RHYTHM PROBABLE LEFT ATRIAL ABNORMALITY BORDERLINE T ABNORMALITIES, ANT-LAT LEADS : Confirmed by: Gamaliel Sierra MD 07-Jan-2018 07:46:24
== END 2018-01-06 22:40 | disposition home or self-care (01) ==
LOC: ER 18:28
DX: R10.13 Epigastric pain (principal); R07.9 Chest pain, unspecified; Z87.891 Personal history of nicotine dependence
CPT/HCPCS: 93005; 99285; 36415; 82553; 82550; 83690; 85025; 80053; 84484; 71045; 93010; S0119

== ENCOUNTER 2018-01-15 08:28 | Day surgery (SDC) | payer BC ==
[~2018-01-15 08:28] MED LIST: DIPHENHYDRAMINE HCL 50 MG/ML VIAL ONE; EPINEPHRINE INJ 1 MG/10 ML DISP.SYRIN ONE; FLUMAZENIL INJ 0.5 MG/5 ML VIAL ONE; GLUCAGON,HUMAN RECOMB 1 MG INJ ONE; NALOXONE HCL INJ/PF 0.4 MG/1 ML SDV ONE; ONDANSETRON HCL INJ/PF 4 MG/2 ML SDV ONE
[2018-01-15] MEDS: MIDAZOLAM 2 MG/2 ML INJ ONE ×2 (08:50→08:58)
[2018-01-15] MEDS: FENTANYL CITRATE INJ/PF 100 MCG/2 ML AMPUL ONE ×3 (08:52→08:56)
--- NOTE | 2018-01-15 09:04 | Operative Report ---
Operative Report DATE OF SURGERY: 01/15/18 Operative Report: The risks benefits and alternatives of the procedure explained to the patient in detail and informed consent is obtained.A GIF Olympus video scope was inserted into the patient's mouth and hypopharynx, the esophagus is identified intubated and insufflated, the scope was then advanced through the esophagus stomach and duodenum, retroflexion maneuver is done, the esophagus stomach and first and second portions of the duodenum examined PREOPERATIVE DIAGNOSIS: Epigastric pain POSTOPERATIVE DIAGNOSIS: Gastritis status post biopsy rule out Helicobacter pylori OPERATION: EGD with biopsy SURGEON: RAVI MCMAHON ANESTHESIA: Moderate Sedation - 4 mg of Versed, 100 mcg of fentanyl. Conscious sedation monitoring time 30 minutes. TISSUE REMOVED OR ALTERED: As noted above. COMPLICATIONS: None. ESTIMATED BLOOD LOSS: None. INTRAOPERATIVE FINDINGS: Esophagus normal without any masses,. Gastritis status post biopsy. Normal duodenal bulb PROCEDURE: Patient tolerated the procedure well. No immediate postprocedure complications are noted. Patient discharged in good condition. Discharge date 01/15/2018. Discharge diet: Regular. Discharge activity: Regular. 2-3 week follow-up to discuss findings. Patient is instructed to call the office or proceed to the emergency room should there be any further problems or questions. Wait on the pathology.
[2018-01-15 10:01] VITALS: BP 132/76
== END 2018-01-15 10:05 | disposition home or self-care (01) ==
LOC: END 08:28
PROVIDERS: ATTEND Internal Medicine Gastroenterology
DX: K29.50 Unspecified chronic gastritis without bleeding (principal); F17.210 Nicotine dependence, cigarettes, uncomplicated; Z79.899 Other long term (current) drug therapy
CPT/HCPCS: 43239; 88342 ×2; 88305 ×2; J2250; J3010; J0171; J1200; J1610; J2310; J2405; J3490

== ENCOUNTER → 2018-02-10 | Outpatient (CLI) | payer BC ==
[2018-02-10 08:07] LABS: ABSOLUTE EOSINOPHILS # (AUTO) 0.2 10^3/uL (0.0-0.6); ABSOLUTE LYMPHOCYTES (AUTO) 2.5 10^3/uL (0.5-4.7); ABSOLUTE MONOCYTES (AUTO) 0.8 10^3/uL (0.1-1.4); ABSOLUTE NEUT (AUTO) 2.8 10^3/uL (1.7-8.2); BASOPHILS % (AUTO) 0.7 % (0-2); EOSINOPHILS % (AUTO) 3.7 % (0-6); HEMATOCRIT 38.2 % (36.0-47.0); HEMOGLOBIN 13.1 g/dL (12.0-15.5); LYMPHOCYTES % (AUTO) 39.1 % (13-45); MEAN CORPUSCULAR HEMOGLOBIN 29.9 pg (27.0-33.4); MEAN CORPUSCULAR HGB CONC 34.3 g/dL (32.0-36.0); MEAN CORPUSCULAR VOLUME 87 fl (80-97); MONOCYTES % (AUTO) 12.7 % (3-13); PLATELET COUNT 272 10^3/uL (150-450); RED BLOOD COUNT 4.38 10^6/uL (3.72-5.28); RED CELL DISTRIBUTION WIDTH 13.6 % (11.5-14.0); SEGMENTED NEUTROPHILS % (AUTO) 43.8 % (42-78); TOTAL CELLS COUNTED % (AUTO) 100 %; WHITE BLOOD COUNT 6.3 10^3/uL (4.0-10.5)
[2018-02-10 08:32] LABS: ALANINE AMINOTRANSFERASE 44 U/L (9-52); ALBUMIN 4.2 g/dL (3.5-5.0); ALKALINE PHOSPHATASE 75 U/L (38-126); AMYLASE 166 U/L (30-110); ANION GAP 10 (5-19); ASPARTATE AMINO TRANSFERASE 32 U/L (14-36); BILIRUBIN,DIRECT 0.3 mg/dL (0.0-0.4); BILIRUBIN,TOTAL 0.4 mg/dL (0.2-1.3); BLOOD UREA NITROGEN 25 mg/dL (7-20); CALCIUM 9.9 mg/dL (8.4-10.2); CARBON DIOXIDE 27 mmol/L (22-30); CHLORIDE 103 mmol/L (98-107); CHOLESTEROL 238.34 mg/dL (0-200); GLUCOSE 151 mg/dL (75-110); POTASSIUM 4.4 mmol/L (3.6-5.0); SODIUM 140.2 mmol/L (137-145); TOTAL PROTEIN 7.3 g/dL (6.3-8.2); TRIGLYCERIDES 327 mg/dL (<150)
[2018-02-10 08:42] LABS: DIRECT LDL 113 mg/dL (<100)
[2018-02-10 08:49] LABS: LIPASE 2074.8 U/L (23-300); VLDL CHOLESTEROL 65.4 mg/dL (10-31)
== END ==
LOC: OD 07:35
PROVIDERS: ATTEND Internal Medicine
DX: I10 Essential (primary) hypertension (principal); K85.90 Acute pancreatitis without necrosis or infection, unspecified; R53.83 Other fatigue
CPT/HCPCS: 36415; 80053; 80061; 82150; 83690; 84443; 85025

== ENCOUNTER → 2018-02-17 | Outpatient (CLI) | payer BC ==
--- NOTE | 2018-02-17 15:55 | RADIOLOGY REPORT (SQ) ---
EXAM DESCRIPTION: CT ABDOMEN COMBO COMPLETED DATE/TIME: 02/17/2018 2:49 pm REASON FOR STUDY: ACUTE PANCREATITIS WITHOUT NECROSIS OR INFECTION, UNSP K85.90 ACUTE PANCREATITIS WITHOUT NECROSIS OR INFECTION, UNS COMPARISON: None. TECHNIQUE: Four phase CT scan limited views of the abdomen performed with and without intravenous co ntrast and with oral contrast. Contrasted imaging performed using helical scanning technique with dy namic intravenous contrast injection. Thin sliced arterial and portal venous phase post contrast ernie ges acquired. Images reviewed with lung, soft tissue, and bone windows. Reconstructed coronal and s agittal MPR images reviewed. Delayed images for evaluation of the urinary system also acquired and e valuated. All images stored on PACS. All CT scanners at this facility use dose modulation, iterative reconstruction, and/or weight based d osing when appropriate to reduce radiation dose to as low as reasonably achievable (ALARA). [facility]: Dose Right [facility]: CareDose [facility]: Dose Right [facility]: Teradose 4D [facility]: [employer] CONTRAST TYPE AND DOSE: contrast/concentration: Isovue 370.00 mg/ml; Total Contrast Delivered: 61.0 ml; Total Saline Delivered: 80.0 ml RENAL FUNCTION: GFR > 60. RADIATION DOSE: CT Rad equipment meets quality standard of care and radiation dose reduction techniq ues were employed. CTDIvol: 19.5 - 25.4 mGy. DLP: 3378 mGy-cm. . LIMITATIONS: None. FINDINGS: NONCONTRASTED IMAGIN mm stone in the left kidney. No pancreatic calcifications. POSTCONTRASTED IMAGING: LOWER CHEST: No significant findings. No nodules or infiltrates. LIVER: No masses or dilated ducts in the visualized liver. SPLEEN: No focal lesions in the visualized spleen. PANCREAS: No masses. No significant calcifications. No adjacent inflammation or peripancreatic flui d collections. Pancreatic duct not dilated. GALLBLADDER: Surgically absent. ADRENAL GLANDS: Stable left adrenal nodule. RIGHT KIDNEY AND URETER: No mass, calculi or urinary tract obstruction. LEFT KIDNEY AND URETER: See above. No solid mass or hydronephrosis. AORTA AND VESSELS: Limited visualization without aneurysm. RETROPERITONEUM: No retroperitoneal adenopathy, hemorrhage or masses. BOWEL AND PERITONEAL CAVITY: Limited visualization. No obvious masses or inflammatory changes. ABDOMINAL WALL: Small umbilical hernia. BONY STRUCTURES: No significant or acute findings in the visualized bony structures. OTHER: No other significant finding. IMPRESSION: No evidence of pancreatic mass or complication of pancreatitis. TECHNICAL DOCUMENTATION: JOB ID: [id number] Quality ID # 436: Final reports with documentation of one or more dose reduction techniques (e.g., Au tomated exposure control, adjustment of the mA and/or kV according to patient size, use of iterative reconstruction technique) 2010 [employer]- All Rights Reserved Reading location - IP/workstation name: [email or web address]
== END ==
LOC: RAD 14:12
PROVIDERS: ATTEND Internal Medicine
DX: K85.90 Acute pancreatitis without necrosis or infection, unspecified (principal)
CPT/HCPCS: 74170

== ENCOUNTER → 2018-03-11 | Outpatient (CLI) | payer BC ==
--- NOTE | 2018-03-11 08:54 | RADIOLOGY REPORT (SQ) ---
EXAM DESCRIPTION: CT HEAD WITHOUT COMPLETED DATE/TIME: 03/11/2018 7:32 am REASON FOR STUDY: HEADACHE (R51) R51 HEADACHE COMPARISON: None. TECHNIQUE: Axial images acquired through the brain without intravenous contrast. Images reviewed wi th bone, brain and subdural windows. Additional sagittal and coronal reconstructions were generated. Images stored on PACS. All CT scanners at this facility use dose modulation, iterative reconstruction, and/or weight based d osing when appropriate to reduce radiation dose to as low as reasonably achievable (ALARA). [facility]: Dose Right [facility]: CareDose [facility]: Dose Right [facility]: Teradose 4D [facility]: [employer] RADIATION DOSE: CT Rad equipment meets quality standard of care and radiation dose reduction techniq ues were employed. CTDIvol: 48.6 mGy. DLP: 905 mGy-cm. mGy. LIMITATIONS: None. FINDINGS: VENTRICLES: Asymmetry of the left lateral ventricle, normal anatomic variant. The cistern s are patent. CEREBRUM: Dilated perivascular space in the region of the left basal ganglia, normal anatomic varian t. No masses. No hemorrhage. No midline shift. No evidence for acute infarction. Normal heard/whit e matter differentiation. No areas of low density in the white matter. CEREBELLUM: No masses. No hemorrhage. No alteration of density. No evidence for acute infarction. EXTRAAXIAL SPACES: No fluid collections. No masses. ORBITS AND GLOBE: No intra- or extraconal masses. Normal contour of globe without masses. CALVARIUM: No fracture. PARANASAL SINUSES: Slight mucosal thickening in the sphenoid and ethmoid sinuses. No fluid or mucos al thickening. SOFT TISSUES: No mass or hematoma. OTHER: No other significant finding. IMPRESSION: 1 No acute intracranial abnormality. 2 Chronic slight sphenoid and ethmoid sinus disease. EVIDENCE OF ACUTE STROKE: NO. COMMENT: Quality ID # 436: Final reports with documentation of one or more dose reduction techniques (e.g., Automated exposure control, adjustment of the mA and/or kV according to patient size, use of iterative reconstruction technique) TECHNICAL DOCUMENTATION: JOB ID: [id number] [employer]- All Rights Reserved Reading location - IP/workstation name: [email or web address]
== END ==
LOC: RAD 07:13
PROVIDERS: ATTEND Internal Medicine
DX: J32.3 Chronic sphenoidal sinusitis (principal); J32.2 Chronic ethmoidal sinusitis; R51 Headache
CPT/HCPCS: 70450

== ENCOUNTER → 2018-03-28 | Outpatient (CLI) | payer BC ==
[2018-03-28 08:28] LABS: ABSOLUTE BASOPHILS # (AUTO) 0.1 10^3/uL (0.0-0.2); ABSOLUTE EOSINOPHILS # (AUTO) 0.1 10^3/uL (0.0-0.6); ABSOLUTE LYMPHOCYTES (AUTO) 2.3 10^3/uL (0.5-4.7); ABSOLUTE MONOCYTES (AUTO) 1.1 10^3/uL (0.1-1.4); ABSOLUTE NEUT (AUTO) 8.7 10^3/uL (1.7-8.2); BASOPHILS % (AUTO) 1.1 % (0-2); EOSINOPHILS % (AUTO) 0.5 % (0-6); HEMATOCRIT 38.6 % (36.0-47.0); HEMOGLOBIN 12.7 g/dL (12.0-15.5); LYMPHOCYTES % (AUTO) 18.9 % (13-45); MEAN CORPUSCULAR HEMOGLOBIN 28.7 pg (27.0-33.4); MEAN CORPUSCULAR HGB CONC 32.8 g/dL (32.0-36.0); MEAN CORPUSCULAR VOLUME 88 fl (80-97); MONOCYTES % (AUTO) 9.2 % (3-13); PLATELET COUNT 310 10^3/uL (150-450); RED BLOOD COUNT 4.41 10^6/uL (3.72-5.28); RED CELL DISTRIBUTION WIDTH 14.3 % (11.5-14.0); SEGMENTED NEUTROPHILS % (AUTO) 70.3 % (42-78); TOTAL CELLS COUNTED % (AUTO) 100 %; WHITE BLOOD COUNT 12.4 10^3/uL (4.0-10.5)
[2018-03-28 09:02] LABS: ALANINE AMINOTRANSFERASE 23 U/L (9-52); ALBUMIN 4.1 g/dL (3.5-5.0); ALKALINE PHOSPHATASE 57 U/L (38-126); ANION GAP 12 (5-19); ASPARTATE AMINO TRANSFERASE 20 U/L (14-36); BILIRUBIN,DIRECT 0.2 mg/dL (0.0-0.4); BILIRUBIN,TOTAL 0.2 mg/dL (0.2-1.3); BLOOD UREA NITROGEN 27 mg/dL (7-20); CALCIUM 9.5 mg/dL (8.4-10.2); CARBON DIOXIDE 24 mmol/L (22-30); CHLORIDE 106 mmol/L (98-107); GLUCOSE 111 mg/dL (75-110); LIPASE 578.6 U/L (23-300); POTASSIUM 4.7 mmol/L (3.6-5.0); SODIUM 141.6 mmol/L (137-145); TOTAL PROTEIN 7.3 g/dL (6.3-8.2)
== END ==
LOC: OD 07:31
PROVIDERS: ATTEND Physician Assistant Surgical
DX: R10.13 Epigastric pain (principal)
CPT/HCPCS: 36415; 80053; 83690; 85025

== ENCOUNTER 2018-05-20 15:08 | Day surgery (SDC) | payer BC ==
[2018-05-20] MEDS ORDERED: ONDANSETRON HCL INJ/PF 4 MG/2 ML SDV ONE (15:57)
[2018-05-20] MEDS ORDERED: FLUMAZENIL INJ 0.5 MG/5 ML VIAL ONE (15:58)
[2018-05-20] MEDS ORDERED: NALOXONE HCL INJ/PF 0.4 MG/1 ML SDV ONE (15:58)
[2018-05-20] MEDS ORDERED: FENTANYL CITRATE INJ/PF 100 MCG/2 ML AMPUL ONE (15:58)
[2018-05-20] MEDS ORDERED: EPINEPHRINE INJ 1 MG/10 ML DISP.SYRIN ONE (15:58)
[2018-05-20] MEDS ORDERED: GLUCAGON,HUMAN RECOMB 1 MG INJ ONE (15:58)
[2018-05-20] MEDS ORDERED: MIDAZOLAM 2 MG/2 ML INJ ONE (15:58)
--- NOTE | 2018-05-20 16:41 | Operative Report ---
Operative Report DATE OF SURGERY: 05/20/18 Operative Report: Pre-op diagnosis: Colon cancer screening Post-op diagnosis: Internal hemorrhoids Surgery: Colonoscopy Medications: Versed 2mg, Fentanyl 100mcg IV push Tissue removed: None Procedure: After informed consent obtained from patient, conscious sedation was achieved. A digital rectal examination was performed and this was unremarkable. The colonoscope was inserted into the rectum and advanced to the cecum. The appendiceal orifice and the terminal ileum were both identified. The mucosa was examined into details as the colonoscope was slowly pulled out of the patient. The endoscope was retroflexed in the rectum. Patient tolerated the procedure well. Findings Cecum: Normal Ascending colon: Normal Transverse colon: Normal Descending colon: Normal Sigmoid colon: Normal Rectum: Normal except for internal hemorrhoids Plan: High-fiber diet. Follow-up colonoscopy in 10 years OPERATION: .
[2018-05-20 17:48] VITALS: BP 117/81
== END 2018-05-20 17:30 | disposition home or self-care (01) ==
LOC: END 15:08
PROVIDERS: ATTEND Internal Medicine Gastroenterology
DX: Z12.11 Encounter for screening for malignant neoplasm of colon (principal); K64.8 Other hemorrhoids; I10 Essential (primary) hypertension
CPT/HCPCS: 45378; J2250; J3010; J0171; J1610; J2310; J2405; J3490

== ENCOUNTER → 2018-11-18 | Outpatient (CLI) | payer BC ==
[2018-11-18 08:39] LABS: ABSOLUTE BASOPHILS # (AUTO) 0.1 10^3/uL (0.0-0.2); ABSOLUTE EOSINOPHILS # (AUTO) 0.2 10^3/uL (0.0-0.6); ABSOLUTE LYMPHOCYTES (AUTO) 2.2 10^3/uL (0.5-4.7); ABSOLUTE MONOCYTES (AUTO) 0.8 10^3/uL (0.1-1.4); ABSOLUTE NEUT (AUTO) 2.7 10^3/uL (1.7-8.2); BASOPHILS % (AUTO) 0.9 % (0-2); EOSINOPHILS % (AUTO) 2.8 % (0-6); HEMATOCRIT 38.8 % (36.0-47.0); HEMOGLOBIN 13.1 g/dL (12.0-15.5); LYMPHOCYTES % (AUTO) 37.9 % (13-45); MEAN CORPUSCULAR HEMOGLOBIN 29.6 pg (27.0-33.4); MEAN CORPUSCULAR HGB CONC 33.8 g/dL (32.0-36.0); MEAN CORPUSCULAR VOLUME 88 fl (80-97); MONOCYTES % (AUTO) 12.9 % (3-13); PLATELET COUNT 305 10^3/uL (150-450); RED BLOOD COUNT 4.43 10^6/uL (3.72-5.28); RED CELL DISTRIBUTION WIDTH 14.2 % (11.5-14.0); SEGMENTED NEUTROPHILS % (AUTO) 45.5 % (42-78); TOTAL CELLS COUNTED % (AUTO) 100 %; WHITE BLOOD COUNT 5.9 10^3/uL (4.0-10.5)
[2018-11-18 09:14] LABS: ALANINE AMINOTRANSFERASE 32 U/L (9-52); ALBUMIN 4.3 g/dL (3.5-5.0); ALKALINE PHOSPHATASE 77 U/L (38-126); ANION GAP 10 (5-19); ASPARTATE AMINO TRANSFERASE 34 U/L (14-36); BILIRUBIN,DIRECT 0.2 mg/dL (0.0-0.4); BILIRUBIN,TOTAL 0.4 mg/dL (0.2-1.3); BLOOD UREA NITROGEN 25 mg/dL (7-20); CALCIUM 9.8 mg/dL (8.4-10.2); CARBON DIOXIDE 23 mmol/L (22-30); CHLORIDE 102 mmol/L (98-107); CHOLESTEROL 218.96 mg/dL (0-200); GLUCOSE 145 mg/dL (75-110); POTASSIUM 4.4 mmol/L (3.6-5.0); SODIUM 135.3 mmol/L (137-145); TOTAL PROTEIN 7.5 g/dL (6.3-8.2); TRIGLYCERIDES 332 mg/dL (<150)
[2018-11-18 09:25] LABS: DIRECT LDL 110 mg/dL (<100)
[2018-11-18 09:27] LABS: ERYTHROCYTE SEDIMENTATION RATE 15 mm/hr (0-30)
[2018-11-18 09:30] LABS: VLDL CHOLESTEROL 66.4 mg/dL (10-31)
[2018-11-18 09:34] LABS: FREE T3 3.68 pg/mL (2.77-5.27); FREE T4 (FREE THYROXINE) 0.97 ng/dL (0.78-2.19)
[2018-11-18 09:47] LABS: THYROID STIMULATING HORMONE 3.07 uIU/mL (0.47-4.68)
== END ==
LOC: OD 07:25
PROVIDERS: ATTEND Internal Medicine
DX: I10 Essential (primary) hypertension (principal); E78.5 Hyperlipidemia, unspecified; R53.83 Other fatigue; R73.9 Hyperglycemia, unspecified
CPT/HCPCS: 36415; 80053; 80061; 83036; 83525; 83735; 84439; 84443; 84481; 85025; 85652

== ENCOUNTER → 2019-01-02 | Outpatient (CLI) | payer BC ==
--- NOTE | 2019-01-02 09:28 | RADIOLOGY REPORT (SQ) ---
EXAM DESCRIPTION: CT SINUSES FOR ENT COMPLETED DATE/TIME: 01/02/2019 8:09 am REASON FOR STUDY: OTHER ACUTE RECURRENT SINUSITIS (J01.81), THYROID FULLNESS (E07.89) J01.81 OTHER ACUTE RECURRENT SINUSITIS E07.89 OTHER SPECIFIED DISORDERS OF THYROID COMPARISON: None. TECHNIQUE: Noncontrast scanning through the paranasal sinuses using bone algorithm. Reconstructed MPR images reviewed. All images stored on PACS. Images acquired for image guided surgery. All CT scanners at this facility use dose modulation, iterative reconstruction, and/or weight based d osing when appropriate to reduce radiation dose to as low as reasonably achievable (ALARA). [facility]: Dose Right [facility]: CareDose [facility]: Dose Right [facility]: Teradose 4D [facility]: [employer] RADIATION DOSE: mGy. FINDINGS: NASAL PASSAGES: Clear. No polyps or masses. OSTEOMEATAL UNITS AND NASOFRONTAL DUCTS: Patent. MAXILLARY SINUSES: Well-pneumatized and clear. Maxillary sinus outlets are patent. ETHMOID SINUSES: Well-pneumatized and clear. SPHENOID SINUSES: Well-pneumatized and clear. FRONTAL SINUSES: Well-pneumatized and clear. MASTOID AIR CELLS: Clear. ORBITS: Normal and symmetrical. NASAL SEPTUM: Midline. No nasal septal spurs. TEMPOROMANDIBULAR JOINTS: Normal. TURBINATES: Middle turbinates bilaterally pneumatized. IMPRESSION: NO EVIDENCE OF ACUTE SINUSITIS. TECHNICAL DOCUMENTATION: JOB ID: [id number] Quality ID # 436: Final reports with documentation of one or more dose reduction techniques (e.g., Au tomated exposure control, adjustment of the mA and/or kV according to patient size, use of iterative reconstruction technique) 2010 [employer]- All Rights Reserved Reading location - IP/workstation name: [email or web address]
--- NOTE | 2019-01-02 09:31 | RADIOLOGY REPORT (SQ) ---
EXAM DESCRIPTION: CT SOFT TISSUE NECK WITH COMPLETED DATE/TIME: 01/02/2019 8:15 am REASON FOR STUDY: OTHER ACUTE RECURRENT SINUSITIS (J01.81), THYROID FULLNESS (E07.89) J01.81 OTHER ACUTE RECURRENT SINUSITIS E07.89 OTHER SPECIFIED DISORDERS OF THYROID COMPARISON: None. TECHNIQUE: Post IV contrasted scanning from skull base through lung apices with review of bone, soft tissue and lung windows. Reconstructed coronal and sagittal MPR images reviewed. All images stored on PACS. All CT scanners at this facility use dose modulation, iterative reconstruction, and/or weight based d osing when appropriate to reduce radiation dose to as low as reasonably achievable (ALARA). [facility]: Dose Right [facility]: CareDose [facility]: Dose Right [facility]: Teradose 4D [facility]: [employer] CONTRAST TYPE AND DOSE: contrast/concentration: Isovue 350.00 mg/ml; Total Contrast Delivered: 75.0 ml; Total Saline Delivered: 55.0 ml RENAL FUNCTION: None required. The patient is less than 50 years old. RADIATION DOSE: . LIMITATIONS: None. FINDINGS: SKULL BASE: Intact. MAJOR SALIVARY GLANDS: No solid or cystic masses. No inflammatory changes. LYMPHADENOPATHY: No enlarged or abnormal nodes. Subcentimeter shotty symmetric nodes bilaterally. MUCOSAL MASSES OR ASYMMETRY: Potential mild mucosal thickening asymmetric in the right aspect of the vallecular. No epiglottic thickening or mass. Please see series 2, image 62 and adjacent slices. LARYNX/CORDS: No abnormal findings. VASCULAR STRUCTURES: The major vessels are patent. LUNG APICES: Clear. BONES: Intact. THYROID: Slight fullness. No focal mass however, homogeneous enhancement. PARANASAL SINUSES: Clear. OTHER: No other significant finding. IMPRESSION: 1. Minimal tissue in the right vallecula, nonspecific. 2. No other mucosal asymmetry or mass. No adenopathy. 3. Thyroid slightly enlarged but without focal mass detected. TECHNICAL DOCUMENTATION: JOB ID: [id number] Quality ID # 436: Final reports with documentation of one or more dose reduction techniques (e.g., Au tomated exposure control, adjustment of the mA and/or kV according to patient size, use of iterative reconstruction technique) 2010 [employer]- All Rights Reserved Reading location - IP/workstation name: [email or web address]
== END ==
LOC: RAD 07:18
PROVIDERS: ATTEND Otolaryngology
DX: J01.81 Other acute recurrent sinusitis (principal); E07.89 Other specified disorders of thyroid
CPT/HCPCS: 70486; 70491; 82565

== ENCOUNTER → 2019-02-27 | Outpatient (CLI) | payer BC ==
--- NOTE | 2019-02-27 11:18 | RADIOLOGY REPORT (SQ) ---
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 TECHNIQUE: Sagittal and Axial imaging includes T1, T2, STIR and gradient echo sequences. Coronal T2/ HASTE imaging. LIMITATIONS: 07/24/2017 MRI lumbar spine FINDINGS: VISUALIZED UPPER ABDOMEN: Limited evaluation. No acute or suspicious findings suggested. SEGMENTATION: No transitional anatomy. The lowest well-developed disc space is labeled L5-S1. ALIGNMENT: There is minimal grade 1 anterolisthesis of L4 over L5 VERTEBRAE: Intact. BONE MARROW: Normal. No marrow replacement or reactive changes. DISC SIGNAL: Normal. No significant abnormal signal or loss of height. POSTERIOR ELEMENTS: Generally intact. No pars defect evident. HARDWARE: None in the spine. CORD AND CONUS: Normal in size and signal intensity. Conus at the L1-2 level. SOFT TISSUES: No aortic aneurysm seen. No bulky retroperitoneal adenopathy or mass. No paraspinal mas s or fluid. T11-12: Minimal facet arthropathy. No central or foraminal stenosis T12-L1: Minimal facet arthropathy. No central or foraminal stenosis. L1-L2: No significant spinal stenosis or exit foraminal stenosis. Mild bilateral facet hypertrophy. L2-L3: No significant spinal stenosis or exit foraminal stenosis. Mild bilateral facet arthropathy. L3-L4: No significant spinal stenosis or exit foraminal stenosis. Mild bilateral facet arthropathy L4-L5: Borderline central canal stenosis results from grade 1 anterolisthesis of L4 over L5 along wit h bulky bilateral facet and ligament hypertrophy. This is best shown on axial T2 image 25. Elsewher e at L4-5 there is mild bilateral inferior foraminal narrowing without exit L4 nerve root impingement . L5-S1: Minimal posterior disc bulging. Mild bilateral facet hypertrophy. No central or foraminal st enosis. SACRUM: Visualized upper sacrum intact. OTHER: No other significant findings. IMPRESSION: No high-grade central or foraminal stenosis. Diffuse lumbar facet arthropathy with borderline central canal stenosis at L4-5 TECHNICAL DOCUMENTATION: JOB ID: [id number]- All Rights Reserved Reading location - IP/workstation name: [email or web address]
== END ==
LOC: RAD 07:05
PROVIDERS: ATTEND Internal Medicine Rheumatology
DX: M54.41 Lumbago with sciatica, right side (principal); K85.90 Acute pancreatitis without necrosis or infection, unspecified
CPT/HCPCS: 72148

== ENCOUNTER → 2019-03-12 | Outpatient (CLI) | payer BC ==
[2019-03-12 08:38] LABS: ABSOLUTE EOSINOPHILS # (AUTO) 0.1 10^3/uL (0.0-0.6); ABSOLUTE LYMPHOCYTES (AUTO) 2.1 10^3/uL (0.5-4.7); ABSOLUTE MONOCYTES (AUTO) 0.6 10^3/uL (0.1-1.4); ABSOLUTE NEUT (AUTO) 2.1 10^3/uL (1.7-8.2); BASOPHILS % (AUTO) 0.8 % (0-2); EOSINOPHILS % (AUTO) 2.6 % (0-6); HEMATOCRIT 37.6 % (36.0-47.0); HEMOGLOBIN 12.5 g/dL (12.0-15.5); LYMPHOCYTES % (AUTO) 41.6 % (13-45); MEAN CORPUSCULAR HEMOGLOBIN 29.2 pg (27.0-33.4); MEAN CORPUSCULAR HGB CONC 33.4 g/dL (32.0-36.0); MEAN CORPUSCULAR VOLUME 87 fl (80-97); MONOCYTES % (AUTO) 12.2 % (3-13); PLATELET COUNT 290 10^3/uL (150-450); RED CELL DISTRIBUTION WIDTH 13.9 % (11.5-14.0); SEGMENTED NEUTROPHILS % (AUTO) 42.8 % (42-78); TOTAL CELLS COUNTED % (AUTO) 100 %
[2019-03-12 09:10] LABS: ALKALINE PHOSPHATASE 63 U/L (38-126); ANION GAP 9 (5-19); ASPARTATE AMINO TRANSFERASE 25 U/L (14-36); BILIRUBIN,DIRECT 0.2 mg/dL (0.0-0.4); BILIRUBIN,TOTAL 0.3 mg/dL (0.2-1.3); BLOOD UREA NITROGEN 17 mg/dL (7-20); CALCIUM 9.6 mg/dL (8.4-10.2); CARBON DIOXIDE 25 mmol/L (22-30); CHLORIDE 105 mmol/L (98-107); CREATINE KINASE 131 U/L (30-135); GLUCOSE 126 mg/dL (75-110); POTASSIUM 4.2 mmol/L (3.6-5.0); TOTAL PROTEIN 6.7 g/dL (6.3-8.2)
[2019-03-12 09:20] LABS: C-REACTIVE PROTEIN < 5.0 mg/L (<10.0); ERYTHROCYTE SEDIMENTATION RATE 13 mm/hr (0-30)
[2019-03-12 09:21] LABS: ALKALINE PHOSPHATASE 63 U/L (38-126); ANION GAP 9 (5-19); ASPARTATE AMINO TRANSFERASE 25 U/L (14-36); BILIRUBIN,DIRECT 0.2 mg/dL (0.0-0.4); BILIRUBIN,TOTAL 0.3 mg/dL (0.2-1.3); BLOOD UREA NITROGEN 17 mg/dL (7-20); CALCIUM 9.6 mg/dL (8.4-10.2); CARBON DIOXIDE 25 mmol/L (22-30); CHLORIDE 105 mmol/L (98-107); GLUCOSE 126 mg/dL (75-110); POTASSIUM 4.2 mmol/L (3.6-5.0); TOTAL PROTEIN 6.7 g/dL (6.3-8.2)
[2019-03-12 09:41] LABS: CHOLESTEROL 176.56 mg/dL (0-200); DIRECT LDL 114 mg/dL (<100); TRIGLYCERIDES 192 mg/dL (<150); VLDL CHOLESTEROL 38.4 mg/dL (10-31)
[2019-03-13 08:59] LABS: THYROID PEROXIDASE (TPO) AB 9 IU/mL (0-34)
[2019-03-13 15:36] LABS: ANTINUCLEAR ANTIBODIES Positive (Negative); SJOGREN'S ANTI-SS-B AB <0.2 AI (0.0-0.9); SJOGREN'S SS-A ANTIBODY 5.9 AI (0.0-0.9); SMITH AB ANA <0.2 AI (0.0-0.9)
[2019-03-13 17:33] LABS: DNA DOUBLE STRAND ANTIBODY ANA <1 IU/mL (0-9); MITOCHONDRIAL (M2) ANTIBODY <20.0 Units (0.0-20.0)
== END ==
LOC: OD 07:07
PROVIDERS: ATTEND Otolaryngology
DX: E78.5 Hyperlipidemia, unspecified (principal); E11.9 Type 2 diabetes mellitus without complications
CPT/HCPCS: 36415; 80053; 80061; 82306; 82550; 83036; 83690; 85025; 85652; 86038; 86140; 86256; 86376; 86430; 87070

== ENCOUNTER 2019-04-29 10:51 | Emergency (ER) | payer BC ==
[2019-04-29] MEDS ORDERED: ASPIRIN 81 MG TABLET, CHEWABLE PO ONE (10:59)
[2019-04-29] MEDS: ONDANSETRON HCL INJ/PF 4 MG/2 ML SDV IV ONE ×2 (11:38→12:34)
[2019-04-29] MEDS: NORMAL SALINE 1000 ML 1,000 ML IV ONE ×2 (11:38→12:33)
[2019-04-29 11:47] LABS: ABSOLUTE EOSINOPHILS # (AUTO) 0.1 10^3/uL (0.0-0.6); ABSOLUTE LYMPHOCYTES (AUTO) 2.8 10^3/uL (0.5-4.7); ABSOLUTE MONOCYTES (AUTO) 0.7 10^3/uL (0.1-1.4); ABSOLUTE NEUT (AUTO) 2.4 10^3/uL (1.7-8.2); BASOPHILS % (AUTO) 0.3 % (0-2); EOSINOPHILS % (AUTO) 1.5 % (0-6); HEMATOCRIT 37.7 % (36.0-47.0); HEMOGLOBIN 12.9 g/dL (12.0-15.5); LYMPHOCYTES % (AUTO) 46.1 % (13-45); MEAN CORPUSCULAR HEMOGLOBIN 29.7 pg (27.0-33.4); MEAN CORPUSCULAR HGB CONC 34.2 g/dL (32.0-36.0); MEAN CORPUSCULAR VOLUME 87 fl (80-97); MONOCYTES % (AUTO) 12.1 % (3-13); PLATELET COUNT 273 10^3/uL (150-450); RED BLOOD COUNT 4.34 10^6/uL (3.72-5.28); RED CELL DISTRIBUTION WIDTH 13.7 % (11.5-14.0); TOTAL CELLS COUNTED % (AUTO) 100 %
[2019-04-29 11:52] LABS: INTERNATIONAL RATION (INR) 0.95; PARTIAL THROMBOPLASTIN TIME 28.4 SEC (23.5-35.8); PROTHROMBIN TIME 12.7 SEC (11.4-15.4)
[2019-04-29] MEDS ORDERED: MORPHINE SULFATE 10 MG/ML INJ IV ONE (12:00)
[2019-04-29 12:03] LABS: ALBUMIN 4.5 g/dL (3.5-5.0); ALKALINE PHOSPHATASE 82 U/L (38-126); ANION GAP 11 (5-19); ASPARTATE AMINO TRANSFERASE 31 U/L (14-36); BILIRUBIN,DIRECT 0.1 mg/dL (0.0-0.4); BILIRUBIN,TOTAL 0.3 mg/dL (0.2-1.3); BLOOD UREA NITROGEN 19 mg/dL (7-20); CALCIUM 10.1 mg/dL (8.4-10.2); CARBON DIOXIDE 26 mmol/L (22-30); CHLORIDE 102 mmol/L (98-107); CREATINE KINASE 141 U/L (30-135); GLUCOSE 93 mg/dL (75-110); POTASSIUM 4.3 mmol/L (3.6-5.0); TOTAL PROTEIN 7.8 g/dL (6.3-8.2)
--- NOTE | 2019-04-29 12:13 | ER Document Report ---
ED General - General Chief Complaint: Chest Pain Stated Complaint: CHEST PAIN Time Seen by Provider: 04/29/19 10:59 Primary Care Provider: AVA CRUM MD [Primary Care Provider] - Follow up as needed TRAVEL OUTSIDE OF THE [place] IN LAST 30 DAYS: No - HPI Notes: 49-year-old female who presents with chest pain. Patient describes onset of mid chest pain, burning radiating to her back, onset last night, gradual onset, well over 12 hours. She actually states that her "pancreatitis". She states that she has a history of pancreatitis and it always presents this way, she is had multiple episodes of the last year or 2. She has a history of remote cholecystectomy. Adamantly denies any alcohol abuse. No history of hypercholesterolemia. She is uncertain if she has a history of severe hypertriglyceridemia. Moderate severe intensity, nonradiating except as described. Gradual onset, no worse with activity. No other modifying factors, no other associated symptoms, no other provocative or palliative factors. - Related Data Allergies/Adverse Reactions: clarithromycin [From Biaxin] Allergy (Intermediate, Verified 04/29/19 11:06) GI upset Past Medical History - Social History Smoking Status: Never Smoker Chew tobacco use (# tins/day): No Frequency of alcohol use: None Drug Abuse: None Family History: Reviewed & Not Pertinent Patient has suicidal ideation: No Patient has homicidal ideation: No - Medical History Notes: Includes pancreatitis - Past Medical History Cardiac Medical History: Reports: Hx Hypertension Denies: Hx Coronary Artery Disease, Hx Heart Attack Pulmonary Medical History: Reports: Hx Bronchitis, Hx Pneumonia Denies: Hx Asthma, Hx COPD Neurological Medical History: Denies: Hx Cerebrovascular Accident, Hx Seizures Renal/ Medical History: Denies: Hx Peritoneal Dialysis Musculoskeletal Medical History: Denies Hx Arthritis Psychiatric Medical History: Reports: Hx Depression Past Surgical History: Reports: Hx Section - 3, Hx Cholecystectomy, Hx Hysterectomy, Other - PARTIAL HYSTERECTOMY - PATIENT STILL HAS OVARIES - Immunizations Hx Diphtheria, Pertussis, Tetanus Vaccination: Yes Review of Systems - Review of Systems Notes: Review of systems as in the history of present illness, otherwise negative x 10 systems. Physical Exam - Vital signs Vitals: Resp Pulse Ox 13 100 04/29/19 11:43 04/29/19 11:43 - Notes Notes: General: Well developed . HEENT: Normocephalic, atraumatic. Pupils equal round reactive to light. No JVD. Chest: No trauma. Respiratory: Good air exchange, normal excursion. Cardiac: Regular rhythm. No murmurs or gallops. Abdomen: Soft, benign. Nondistended. Nontender. Back: No asymmetry or gross abnormality. Motor: Grossly normal power and tone. Neurologic: Alert, nonfocal. Cranial nerves II-12 are intact. Sensation intact. Vascular: Well perfused. Normal peripheral pulses. Skin: No petechiae or purpura. Course - Re-evaluation Re-evalutation: 04/29/19 12:12 49-year-old female who presents with atypical chest pain, pain that she states is stereotypical for prior episodes of acute pancreatitis. Patient was evaluated by the [facility] provider prior to my evaluation. Studies / interventions have been ordered by this provider and may still be pending. Given the patient's atypical symptoms and prolonged nature of her symptomology, likelihood of ACS with a single negative troponin is acceptably low. This point plan to proceed with IV fluids, analgesics, awaiting laboratory evaluation. 04/29/19 13:03 Labs reviewed, CBC, chemistries, LFTs lipase unremarkable, troponin normal. Patient remains comfortable, no significant distress. I think a single given the prolonged nature of her atypical symptoms, I think a single negative troponin makes the posttest probability for ACS acceptably low. Discharge home with prescription for tramadol, outpatient follow-up. - Vital Signs Vital signs: Temp Pulse Resp BP Pulse Ox 13 99 04/29/19 11:43 04/29/19 11:52 - Laboratory Result Diagrams: 04/29/19 11:20 04/29/19 11:20 Laboratory results interpreted by me: 04/29/19 04/29/19 11:20 11:20 Lymph % (Auto) 46.1 H Seg Neutrophils % 40.0 L Creatine Kinase 141 H - EKG Interpretation by Co EKG shows normal: Sinus rhythm, [place], Intervals - Nonspecific ST-T changes Discharge - Discharge Clinical Impression: Chest pain Qualifiers: Chest pain type: other chest pain Qualified Code(s): R07.89 - Other chest pain; R07.8 - Other chest pain Condition: Stable Disposition: HOME, SELF-CARE Instructions: Chest Pain of Unclear Cause ([facility]) Prescriptions: Tramadol HCl [Ultram 50 mg Tablet] 50 mg PO Q6 PRN #12 tablet PRN Reason: Referrals: AVA CRUM MD [Primary Care Provider] - Follow up as needed
[2019-04-29 12:17] LABS: CREATINE KINASE MB < 0.22 ng/mL (<4.55); NT PRO BNP 12 pg/mL (5-900); TROPONIN I < 0.012 ng/mL
--- NOTE | 2019-04-29 12:26 | RADIOLOGY REPORT (SQ) ---
EXAM DESCRIPTION: CHEST 2 VIEWS COMPLETED DATE/TIME: 04/29/2019 12:20 pm REASON FOR STUDY: chest COMPARISON: 01/17/2018 EXAM PARAMETERS: NUMBER OF VIEWS: two views TECHNIQUE: Digital Frontal and Lateral radiographic views of the chest acquired. RADIATION DOSE: NA LIMITATIONS: none FINDINGS: LUNGS AND PLEURA: No opacities, masses or pneumothorax. No pleural effusion. MEDIASTINUM AND HILAR STRUCTURES: No masses or contour abnormalities. HEART AND VASCULAR STRUCTURES: Heart normal size. No evidence for failure. BONES: No acute findings. HARDWARE: None in the chest. OTHER: No other significant finding. IMPRESSION: NO ACUTE RADIOGRAPHIC FINDING IN THE CHEST. TECHNICAL DOCUMENTATION: JOB ID: [id number] [employer]- All Rights Reserved Reading location - IP/workstation name: [email or web address]
[2019-04-29 13:38] VITALS: BP 121/83
--- NOTE | 2019-04-29 19:58 | EKG REPORT ---
SEVERITY:- BORDERLINE ECG - SINUS RHYTHM BORDERLINE T ABNORMALITIES, ANTERIOR LEADS : Confirmed by: Herlinda Granger MD 29-Apr-2019 19:57:56
== END 2019-04-29 13:39 | disposition home or self-care (01) ==
LOC: ER 10:51
DX: R07.89 Other chest pain (principal); I10 Essential (primary) hypertension; Z87.19 Personal history of other diseases of the digestive system; Z87.01 Personal history of pneumonia (recurrent); Z88.1 Allergy status to other antibiotic agents
CPT/HCPCS: 93005; 99285; 96361; 96374; 96375; 36415; 82553; 82550; 83690; 83735; 85025; 85610; 85730; 80053; 84484; 83880; 71046; 93010; J2270; J2405; J7030

== ENCOUNTER 2019-05-12 15:23 | Day surgery (SDC) | payer BC ==
[2019-05-12] MEDS ORDERED: MIDAZOLAM 2 MG/2 ML INJ ONE (15:40)
[2019-05-12] MEDS ORDERED: NALOXONE HCL INJ/PF 0.4 MG/1 ML SDV ONE (15:40)
[2019-05-12] MEDS ORDERED: ONDANSETRON HCL INJ/PF 4 MG/2 ML SDV ONE (15:40)
[2019-05-12] MEDS ORDERED: FENTANYL CITRATE INJ/PF 100 MCG/2 ML AMPUL ONE (15:40)
[2019-05-12] MEDS ORDERED: FLUMAZENIL INJ 0.5 MG/5 ML VIAL ONE (15:41)
[2019-05-12] MEDS ORDERED: EPINEPHRINE INJ 1 MG/10 ML DISP.SYRIN ONE (15:41)
[2019-05-12] MEDS ORDERED: GLUCAGON,HUMAN RECOMB 1 MG INJ ONE (15:41)
--- NOTE | 2019-05-12 17:04 | Operative Report ---
Operative Report DATE OF SURGERY: 05/12/19 Operative Report: Pre-op diagnosis: Epigastric pain Post-op diagnosis: Normal EGD Surgery: Esophagogastroduodenoscopy with biopsy Medications: Versed 2mg Fentanyl 100 Mcg IV push Tissue removed: Antral and gastric body biopsy for pathology Procedure: After informed consent obtained from patient, the throat was sprayed with Hurricane and conscious sedation was achieved. The upper endoscope was inserted into the esophagus under direct vision and advanced into the stomach. The duodenum was entered and examined to the second part. Endoscope was then slowly pulled out of the patient as the mucosa was examined into details. Patient tolerated procedure well. Findings Esophagus: Normal Z-line at: 40 cm Antrum: Normal Body: Normal Fundus: Normal Duodenum first part: Normal Duodenum second part: Normal Plan: Await pathology. Await endoscopic ultrasound OPERATION: .
[2019-05-12 17:47] VITALS: BP 119/77
== END 2019-05-12 18:00 | disposition home or self-care (01) ==
LOC: END 15:23
PROVIDERS: ATTEND Internal Medicine Gastroenterology
DX: K29.50 Unspecified chronic gastritis without bleeding (principal); R63.4 Abnormal weight loss; K58.2 Mixed irritable bowel syndrome; K21.9 Gastro-esophageal reflux disease without esophagitis; Z68.41 Body mass index [BMI] 40.0-44.9, adult
CPT/HCPCS: 43239; 88342 ×2; 88305 ×2; J2250; J3010; J0171; J1610; J2310; J2405; J3490

== ENCOUNTER → 2019-08-19 | Outpatient (CLI) | payer BC ==
--- NOTE | 2019-08-19 14:39 | RADIOLOGY REPORT (SQ) ---
EXAM DESCRIPTION: NM GASTRIC EMPTYING STUDY COMPLETED DATE/TIME: 08/19/2019 2:04 pm REASON FOR STUDY: (K31.89)OTHER DISEASES OF STOMACH AND DUODENUM K31.89 OTHER DISEASES OF STOMACH A ND DUODENUM COMPARISON: None. RADIONUCLIDE AND DOSE: 2.17 millicuries Tc-99m Sulfur Colloid. A wide variety of solid foods have been used. The route of agent administration: Oral. TECHNIQUE: 1 minute serial static imaging performed at time of meal, 1 hour, 2 hours, 3 hours, and 4 hours as needed. Once stomach reaches 90% emptying, the test is complete. Image intensity values pl otted with respect to time with linear regression algorithm. LIMITATIONS: None. FINDINGS: Patient was observed for 4 hours. Immediate post meal serves as baseline. Gastric emptying at 30 minutes was 11.7%. Gastric emptying at 60 minutes was 23.5% Gastric emptying at 90 minutes was 35.2%. Gastric emptying at 120 minutes was 47.0%. Gastric emptying at 240 minutes was 93.9% Normal values: 60 minutes: 30-90% retained. If less than 30%, abnormally rapid emptying. If greater than 90%, delaye d gastric emptying. 120 minutes: <60% retained. If greater than 60%, delayed gastric emptying. 240 minutes: <10% retained. If greater than 10%, delayed gastric emptying. IMPRESSION: Delayed gastric emptying is noted at the 60, 90 an 120 minute intervals. Normal emptyin g by a 2 hours. TECHNICAL DOCUMENTATION: JOB ID: [id number] [employer]- All Rights Reserved rev Reading location - IP/workstation name: [email or web address]
== END ==
LOC: RAD 07:58
PROVIDERS: ATTEND Internal Medicine Gastroenterology
DX: K31.89 Other diseases of stomach and duodenum (principal); K30 Functional dyspepsia
CPT/HCPCS: 78264; A9541

== ENCOUNTER → 2019-09-16 | Outpatient (CLI) | payer BC ==
[2019-09-16 08:46] LABS: ANION GAP 11 (5-19); BLOOD UREA NITROGEN 31 mg/dL (7-20); CALCIUM 9.8 mg/dL (8.4-10.2); CARBON DIOXIDE 26 mmol/L (22-30); CHLORIDE 100 mmol/L (98-107); GLUCOSE 128 mg/dL (75-110); POTASSIUM 4.5 mmol/L (3.6-5.0)
== END ==
LOC: OD 07:24
PROVIDERS: ATTEND Family Medicine
DX: E11.9 Type 2 diabetes mellitus without complications (principal)
CPT/HCPCS: 36415; 80048; 83036

== ENCOUNTER → 2019-10-21 | Outpatient (CLI) | payer BC ==
[2019-10-21 10:48] LABS: ANION GAP 12 (5-19); BLOOD UREA NITROGEN 21 mg/dL (7-20); CALCIUM 9.6 mg/dL (8.4-10.2); CARBON DIOXIDE 23 mmol/L (22-30); CHLORIDE 102 mmol/L (98-107); GLUCOSE 115 mg/dL (75-110); POTASSIUM 4.5 mmol/L (3.6-5.0)
== END ==
LOC: OD 09:06
PROVIDERS: ATTEND Family Medicine
DX: R79.89 Other specified abnormal findings of blood chemistry (principal)
CPT/HCPCS: 36415; 80048

== ENCOUNTER 2020-01-26 12:20 | Emergency (ER) | payer BC ==
[2020-01-26 12:39] VITALS: BP 137/78
[2020-01-26] MEDS ORDERED: ONDANSETRON 4 MG TAB.RAPDIS PO ONE (14:31)
--- NOTE | 2020-01-26 14:32 | ER Document Report ---
ED Medical Screen (RME) - General Chief Complaint: Abdominal Pain Stated Complaint: ABDOMINAL PAIN Time Seen by Provider: 01/26/20 14:28 Primary Care Provider: AVA CRUM MD [Primary Care Provider] - Follow up as needed Mode of Arrival: Ambulatory Information source: Patient Notes: Patient presents complaining of epigastric pain and left flank pain since 2:00 this morning. Patient reports nausea vomiting x4 episodes. No diarrhea. Patient reports constipation with last bowel movement about 10 days ago. Patient denies any urinary symptoms. Patient does report a history of IBS as well as pancreatitis. Patient has had a previous and cholecystectomy. I have greeted and performed a rapid initial assessment of this patient. A comprehensive ED assessment and evaluation of the patient, analysis of test results and completion of the medical decision making process will be conducted by additional ED providers. TRAVEL OUTSIDE OF THE [place] IN LAST 30 DAYS: No - Related Data Allergies/Adverse Reactions: clarithromycin [From Biaxin] Allergy (Intermediate, Verified 04/29/19 11:06) GI upset Past Medical History - Past Medical History Cardiac Medical History: Reports: Hx Hypercholesterolemia, Hx Hypertension Denies: Hx Coronary Artery Disease, Hx Heart Attack Pulmonary Medical History: Denies: Hx Asthma, Hx Bronchitis, Hx COPD, Hx Pneumonia Neurological Medical History: Denies: Hx Cerebrovascular Accident, Hx Seizures Renal/ Medical History: Denies: Hx Peritoneal Dialysis Musculoskeltal Medical History: Reports Hx Arthritis Psychiatric Medical History: Reports: Hx Depression Past Surgical History: Reports: Hx Section - 3, Hx Cholecystectomy, Hx Hysterectomy, Other - PARTIAL HYSTERECTOMY - PATIENT STILL HAS OVARIES - Immunizations Hx Diphtheria, Pertussis, Tetanus Vaccination: Yes Physical Exam - Vital signs Vitals: Temp Pulse Resp BP Pulse Ox 98.7 F 75 15 137/78 H 96 01/26/20 12:35 01/26/20 12:35 01/26/20 12:35 01/26/20 12:35 01/26/20 12:35 - Abdominal Inspection: Obese Tenderness: Tender - Epigastric Course - Vital Signs Vital signs: Temp Pulse Resp BP Pulse Ox 98.7 F 75 15 137/78 H 96 01/26/20 12:35 01/26/20 12:35 01/26/20 12:35 01/26/20 12:35 01/26/20 12:35 Doctor's Discharge - Discharge Referrals: AVA CRUM MD [Primary Care Provider] - Follow up as needed
[2020-01-26 14:57] LABS: ABSOLUTE LYMPHOCYTES (AUTO) 1.9 10^3/uL (0.5-4.7); ABSOLUTE NEUT (AUTO) 7.3 10^3/uL (1.7-8.2); BASOPHILS % (AUTO) 0.4 % (0-2); EOSINOPHILS % (AUTO) 0.1 % (0-6); HEMATOCRIT 39.7 % (36.0-47.0); HEMOGLOBIN 13.2 g/dL (12.0-15.5); LYMPHOCYTES % (AUTO) 18.8 % (13-45); MEAN CORPUSCULAR HEMOGLOBIN 29.5 pg (27.0-33.4); MEAN CORPUSCULAR HGB CONC 33.1 g/dL (32.0-36.0); MEAN CORPUSCULAR VOLUME 89 fl (80-97); MONOCYTES % (AUTO) 10.2 % (3-13); PLATELET COUNT 285 10^3/uL (150-450); RED BLOOD COUNT 4.46 10^6/uL (3.72-5.28); RED CELL DISTRIBUTION WIDTH 13.8 % (11.5-14.0); SEGMENTED NEUTROPHILS % (AUTO) 70.5 % (42-78); TOTAL CELLS COUNTED % (AUTO) 100 %; WHITE BLOOD COUNT 10.3 10^3/uL (4.0-10.5)
[2020-01-26 15:12] LABS: ALBUMIN 4.1 g/dL (3.5-5.0); ALKALINE PHOSPHATASE 67 U/L (38-126); ANION GAP 5 (5-19); ASPARTATE AMINO TRANSFERASE 30 U/L (14-36); BILIRUBIN,TOTAL 0.3 mg/dL (0.2-1.3); BLOOD UREA NITROGEN 16 mg/dL (7-20); CALCIUM 9.7 mg/dL (8.4-10.2); CARBON DIOXIDE 25 mmol/L (22-30); CHLORIDE 106 mmol/L (98-107); GLUCOSE 96 mg/dL (75-110); POTASSIUM 4.3 mmol/L (3.6-5.0); TOTAL PROTEIN 7.3 g/dL (6.3-8.2)
[2020-01-26 16:13] LABS: APPEARANCE,URINE CLEAR; BILIRUBIN,URINE NEGATIVE (NEGATIVE); COLOR,URINE YELLOW; GLUCOSE, URINE NEGATIVE (NEGATIVE); KETONES,URINE TRACE mg/dL (NEGATIVE); LEUKOCYTE ESTERASE,URINE NEGATIVE (NEGATIVE); NITRITE,URINE NEGATIVE (NEGATIVE); PROTEIN,URINE NEGATIVE (NEGATIVE); URINE SPECIFIC GRAVITY 1.017; UROBILINOGEN,URINE NEGATIVE mg/dL (<2.0)
== END 2020-01-26 18:37 | disposition left against medical advice (07) ==
LOC: ER 12:20
DX: K59.00 Constipation, unspecified (principal); R10.13 Epigastric pain; R10.9 Unspecified abdominal pain; I10 Essential (primary) hypertension; Z88.1 Allergy status to other antibiotic agents; Z90.49 Acquired absence of other specified parts of digestive tract; Z53.29 Procedure and treatment not carried out because of patient's decision for other reasons
CPT/HCPCS: 99281; 36415; 83690; 85025; 80053; 81001; S0119

== ENCOUNTER 2020-01-26 19:45 | Emergency (ER) | payer BC ==
[2020-01-26] MEDS ORDERED: NORMAL SALINE 1000 ML 1,000 ML IV ONE (20:57)
[2020-01-26] MEDS ORDERED: KETOROLAC TROMETHAMINE INJ/PF 30 MG/1 ML SDV IV ONE (20:57)
[2020-01-26] MEDS ORDERED: ONDANSETRON HCL INJ/PF 4 MG/2 ML SDV IV ONE (20:57)
--- NOTE | 2020-01-26 21:00 | ER Document Report ---
ED General - General Chief Complaint: Abdominal Pain Stated Complaint: ABDOMINAL PAIN Time Seen by Provider: 01/26/20 20:09 Primary Care Provider: AVA CRUM MD [Primary Care Provider] - Follow up as needed Mode of Arrival: Medic Information source: Patient TRAVEL OUTSIDE OF THE [place] IN LAST 30 DAYS: No - HPI Onset: This morning - at 2am Onset/Duration: Gradual Quality of pain: Sharp Severity: Moderate Pain Level: 4 Associated symptoms: Nausea, Vomiting, Other - Abdominal Pain, Constipation Exacerbated by: Denies Relieved by: Denies Similar symptoms previously: Yes Recently seen / treated by doctor: No Notes: 50 year old female with a history of IBS, HTN, HLD, Depression who has had a C Section and prior Cholecystectomy here in the ER for epigastric abdominal pain, left flank pain, nausea, vomiting, and constipation since this morning at 2am. The patient was seen earlier in the day but left due to the long ER wait. The patient had labs drawn on her first ER visit which were all unremarkable except for some hematuria. The patient is unsure if this is an IBS flare or something else. The patient denies known sick contacts, recent travel, fevers, chills, sweats. - Related Data Allergies/Adverse Reactions: clarithromycin [From Biaxin] Allergy (Intermediate, Verified 01/26/20 19:59) GI upset Past Medical History - General Information source: Patient - Social History Smoking Status: Former Smoker Chew tobacco use (# tins/day): No Frequency of alcohol use: Occasional Drug Abuse: None Family History: Reviewed & Not Pertinent Patient has homicidal ideation: No - Past Medical History Cardiac Medical History: Reports: Hx Hypercholesterolemia, Hx Hypertension Denies: Hx Coronary Artery Disease, Hx Heart Attack Pulmonary Medical History: Denies: Hx Asthma, Hx Bronchitis, Hx COPD, Hx Pneumonia Neurological Medical History: Denies: Hx Cerebrovascular Accident, Hx Seizures Renal/ Medical History: Denies: Hx Peritoneal Dialysis Musculoskeletal Medical History: Reports Hx Arthritis Psychiatric Medical History: Reports: Hx Depression Past Surgical History: Reports: Hx Section - 3, Hx Cholecystectomy, Hx Hysterectomy, Other - PARTIAL HYSTERECTOMY - PATIENT STILL HAS OVARIES - Immunizations Hx Diphtheria, Pertussis, Tetanus Vaccination: Yes Review of Systems - Review of Systems Constitutional: No symptoms reported EENT: No symptoms reported Cardiovascular: No symptoms reported Respiratory: No symptoms reported Gastrointestinal: Abdominal pain, Nausea Genitourinary: No symptoms reported Female Genitourinary: No symptoms reported Musculoskeletal: No symptoms reported Skin: No symptoms reported Hematologic/Lymphatic: No symptoms reported Neurological/Psychological: No symptoms reported -: Yes All other systems reviewed and negative Physical Exam - Vital signs Vitals: Temp Pulse Resp BP Pulse Ox 98.7 F 64 16 125/69 98 01/26/20 19:50 01/26/20 19:50 01/26/20 19:50 01/26/20 19:50 01/26/20 19:50 - Notes Notes: GENERAL: Well-appearing, well-nourished and in no acute distress. HEAD: Atraumatic, normocephalic. EYES: Pupils equal round and reactive to light, extraocular movements intact, sclera anicteric, conjunctiva are normal. ENT: External ears normal, nares patent, oropharynx clear without exudates. Moist mucous membranes. NECK: Normal range of motion, supple without lymphadenopathy or JVD. LUNGS: Breath sounds clear to auscultation bilaterally and equal. No wheezes rales or rhonchi. HEART: Regular rate and rhythm without murmurs, rubs or gallops. ABDOMEN: Soft, mild tenderness in epigastric area and in left flank and left upper quadrant, normoactive bowel sounds. No guarding, no rebound. No masses appreciated. EXTREMITIES: Normal range of motion, no pitting or edema. No clubbing or cyanosis. NEUROLOGICAL: Cranial nerves II through XII grossly intact. Normal speech, normal gait. PSYCH: Normal mood, normal affect. SKIN: Warm, Dry, normal turgor, no rashes or lesions noted. Course - Re-evaluation Re-evalutation: 01/26/20 21:40 The patient has a left sided 3mm kidney stone causing mild hydronephrosis and hydroureter. Patient treated in the ER with fluids, Toradol, and Zofran with near resolution of her symptoms. Patient provided with a strainer and she was pr escribed [place], Zofran, and Flomax. Patient should pass the stone but will give her follow up Urology Contact information. - Vital Signs Vital signs: Temp Pulse Resp BP Pulse Ox 98.7 F 64 16 125/69 98 01/26/20 20:00 01/26/20 19:50 01/26/20 19:50 01/26/20 19:50 01/26/20 19:50 - Diagnostic Test Radiology reviewed: Image reviewed, Reports reviewed Discharge - Discharge Clinical Impression: Kidney stone Condition: Stable Disposition: HOME, SELF-CARE Instructions: Kidney Stone ([facility]) Additional Instructions: Drink plenty of fluids in the days to come. Strain your urine to ensure you pass the kidney stone. Use Motrin and Tylenol for pain. Use [place] for pain not well controlled. Use Zofran as needed for nausea. Take Flomax as prescribed to help you pass the stone. If you dont pass the stone you will need to follow up with a Urologist (one is listed in your paperwork). Prescriptions: Tamsulosin HCl [Flomax] 0.4 mg PO DAILY #30 capsule Hydrocodone/Acetaminophen [[place] 5-325 mg Tablet] 1 tab PO Q6H PRN #10 tablet PRN Reason: Ondansetron [Zofran Odt 4 mg Tablet] 4 mg PO Q8H PRN #10 tab.rapdis PRN Reason: Referrals: AVA CRUM MD [Primary Care Provider] - Follow up as needed GALI LEHMAN MD [NO LOCAL MD] - Follow up as needed
--- NOTE | 2020-01-26 21:35 | RADIOLOGY REPORT (SQ) ---
EXAM DESCRIPTION: CT ABDOMEN PELVIS WITHOUT IV CONTRAST COMPLETED DATE/TME: 01/26/2020 20:59 CLINICAL HISTORY: 50 years, Female, eval for left sided kidney stone COMPARISON: Prior study from 02/17/2018 TECHNIQUE: Noncontrast CT of the abdomen/pelvis was acquired. Coronal and sagittal reformations were created. Images stored on PACS. All CT scanners at this facility use dose modulation, iterative reconstruction, and/or weight based dosing when appropriate to reduce radiation dose to as low as reasonably achievable (ALARA). [facility]: Dose Right [facility]: CareDose [facility]: Dose Right [facility]: Teradose 4D [facility]: In[employer]ero LIMITATIONS: None. FINDINGS: Limited evaluation of the lower chest reveals clear lung bases. Liver, spleen, and pancreas appear normal. There is nodular enlargement of the bilateral adrenal glands, unchanged from 02/17/2018. As such, these are compatible with multiple bilateral adrenal adenomas. Right kidney shows no suspicious finding. Left kidney appears diffusely edematous with perinephric inflammatory stranding. Mild left hydronephrosis/hydroureter is noted as a result of a 3 mm calculus located at or just distal to the UVJ on image 82 of series 3. The urinary bladder is collapsed. Uterus is absent. A fluid density lesion is noted about the left adnexa measuring 1.8 x 1.7 cm in size on image 75 of series 3. This is almost certainly benign for which no further follow-up is required. Small and large bowel appear normal in caliber. No evidence of bowel obstruction. Appendix is normal. Vascular structures show mild calcification about the abdominal aorta. No suspicious lymphadenopathy or drainable fluid collections are appreciated. Bone windows show no destructive osseous lesions. IMPRESSION: 3 mm calculus located at or just distal to the left UVJ with mild left hydronephrosis/hydroureter. TECHNICAL DOCUMENTATION: Quality ID # 436: Final reports with documentation of one or more dose reduction techniques (e.g., Automated exposure control, adjustment of the mA and/or kV according to patient size, use of iterative reconstruction technique) copyright 2011 [employer]- All Rights Reserved
[2020-01-26 23:11] VITALS: BP 117/78
== END 2020-01-26 23:01 | disposition home or self-care (01) ==
LOC: ER 19:45
DX: N13.2 Hydronephrosis with renal and ureteral calculous obstruction (principal); K59.00 Constipation, unspecified; R10.13 Epigastric pain; R10.9 Unspecified abdominal pain; R10.816 Epigastric abdominal tenderness; R10.812 Left upper quadrant abdominal tenderness; R10.819 Abdominal tenderness, unspecified site; R11.0 Nausea; I10 Essential (primary) hypertension; Z90.49 Acquired absence of other specified parts of digestive tract; Z88.1 Allergy status to other antibiotic agents; Z87.891 Personal history of nicotine dependence
CPT/HCPCS: 99284; 96361; 96374; 96375; 74176; J1885; J2405; J7030

== ENCOUNTER 2020-08-08 09:43 | Emergency (ER) | payer BC ==
--- NOTE | 2020-08-08 10:30 | ER Document Report ---
ED Medical Screen (RME) - General Chief Complaint: Chest Pain Stated Complaint: CHEST PAIN Time Seen by Provider: 08/08/20 10:24 Primary Care Provider: AVA CRUM MD [Primary Care Provider] - Follow up as needed Notes: HPI: 50-year-old female presenting to the emergency department for evaluation of multiple complaints. Patient states 4 days ago she developed a central midsternal chest tightness as well as a frontal headache. Patient states that she has a history of pancreatitis and oftentimes presents like this. States that the pancreatitis started when she had to get steroid shots. She recently restarted those. Denies abdominal pain nausea vomiting. Denies shortness of breath. Has not had a cough or fever PHYSICAL EXAMINATION: Alert and oriented answering all questions appropriately lung sounds are clear to auscultation regular rate and rhythm normal sinus rhythm EKG I have greeted and performed a rapid initial assessment of this patient. A comprehensive ED assessment and evaluation of the patient, analysis of test results and completion of medical decision making process will be conducted by an additional ED providers. Please note that clinical decision making for this patient was made during the 2019 pandemic of novel coronavirus which caused a significant strain on the healthcare system including at this particular facility. Criteria for admission discharge and level of care decisions as well as treatment decisions have necessarily changed TRAVEL OUTSIDE OF THE [place] IN LAST 30 DAYS: No - Related Data Allergies/Adverse Reactions: clarithromycin [From Biaxin] Allergy (Intermediate, Verified 01/26/20 19:59) GI upset Past Medical History - Past Medical History Cardiac Medical History: Reports: Hx Hypercholesterolemia, Hx Hypertension Denies: Hx Coronary Artery Disease, Hx Heart Attack Pulmonary Medical History: Denies: Hx Asthma, Hx Bronchitis, Hx COPD, Hx Pneumonia Neurological Medical History: Denies: Hx Cerebrovascular Accident, Hx Seizures Renal/ Medical History: Denies: Hx Peritoneal Dialysis Musculoskeltal Medical History: Reports Hx Arthritis Psychiatric Medical History: Reports: Hx Depression Past Surgical History: Reports: Hx Section - 3, Hx Cholecystectomy, Hx Hysterectomy, Other - PARTIAL HYSTERECTOMY - PATIENT STILL HAS OVARIES - Immunizations Hx Diphtheria, Pertussis, Tetanus Vaccination: Yes Physical Exam - Vital signs Vitals: Temp Pulse Resp BP Pulse Ox 98.7 F 67 16 137/81 H 98 08/08/20 09:51 08/08/20 09:51 08/08/20 09:51 08/08/20 09:51 08/08/20 09:51 Course - Vital Signs Vital signs: Temp Pulse Resp BP Pulse Ox 98.7 F 67 16 137/81 H 98 08/08/20 09:51 08/08/20 09:51 08/08/20 09:51 08/08/20 09:51 08/08/20 09:51 Doctor's Discharge - Discharge Referrals: AVA CRUM MD [Primary Care Provider] - Follow up as needed
[2020-08-08 10:52] LABS: ABSOLUTE BASOPHILS # (AUTO) 0.1 10^3/uL (0.0-0.2); ABSOLUTE EOSINOPHILS # (AUTO) 0.1 10^3/uL (0.0-0.6); ABSOLUTE MONOCYTES (AUTO) 0.8 10^3/uL (0.1-1.4); ABSOLUTE NEUT (AUTO) 2.8 10^3/uL (1.7-8.2); BASOPHILS % (AUTO) 1.7 % (0-2); EOSINOPHILS % (AUTO) 1.8 % (0-6); HEMOGLOBIN 13.7 g/dL (12.0-15.5); LYMPHOCYTES % (AUTO) 44.2 % (13-45); MEAN CORPUSCULAR HEMOGLOBIN 29.5 pg (27.0-33.4); MEAN CORPUSCULAR HGB CONC 33.3 g/dL (32.0-36.0); MEAN CORPUSCULAR VOLUME 88 fl (80-97); MONOCYTES % (AUTO) 12.2 % (3-13); PLATELET COUNT 280 10^3/uL (150-450); RED BLOOD COUNT 4.63 10^6/uL (3.72-5.28); RED CELL DISTRIBUTION WIDTH 13.4 % (11.5-14.0); SEGMENTED NEUTROPHILS % (AUTO) 40.1 % (42-78); TOTAL CELLS COUNTED % (AUTO) 100 %; WHITE BLOOD COUNT 6.9 10^3/uL (4.0-10.5)
[2020-08-08 11:28] LABS: ALBUMIN 4.3 g/dL (3.5-5.0); ALKALINE PHOSPHATASE 79 U/L (38-126); ANION GAP 6 (5-19); ASPARTATE AMINO TRANSFERASE 27 U/L (14-36); BILIRUBIN,DIRECT 0.1 mg/dL (0.0-0.4); BILIRUBIN,TOTAL 0.4 mg/dL (0.2-1.3); BLOOD UREA NITROGEN 22 mg/dL (7-20); CALCIUM 9.9 mg/dL (8.4-10.2); CARBON DIOXIDE 26 mmol/L (22-30); CHLORIDE 104 mmol/L (98-107); GLUCOSE 105 mg/dL (75-110); POTASSIUM 4.6 mmol/L (3.6-5.0); TOTAL PROTEIN 7.3 g/dL (6.3-8.2)
[2020-08-08] MEDS ORDERED: NORMAL SALINE 1000 ML 1,000 ML IV ONE ×2 (11:52→13:51)
[2020-08-08] MEDS ORDERED: MORPHINE SULFATE 10 MG/ML INJ IV ONE (11:57)
--- NOTE | 2020-08-08 12:00 | RADIOLOGY REPORT (SQ) ---
EXAM DESCRIPTION: CHEST SINGLE VIEW IMAGES COMPLETED DATE/TIME: 08/08/2020 11:45 am REASON FOR STUDY: chest tightness COMPARISON: PA and lateral views of the chest from 04/29/2019. EXAM PARAMETERS: NUMBER OF VIEWS: One view. TECHNIQUE: An AP view of the chest was obtained. RADIATION DOSE: NA LIMITATIONS: None. FINDINGS: LUNGS AND PLEURA: No consolidation, pleural effusion or pneumothorax. MEDIASTINUM AND HILAR STRUCTURES: No mediastinal or hilar contour abnormality. HEART AND VASCULAR STRUCTURES: The cardiac silhouette and pulmonary vasculature are within normal [place] its. BONES: No acute findings. HARDWARE: None in the chest. OTHER: No other finding. IMPRESSION: No acute cardiopulmonary process. TECHNICAL DOCUMENTATION: JOB ID: [id number] 2010 [employer]- All Rights Reserved Reading location - IP/workstation name: [email or web address]
[2020-08-08] MEDS ORDERED: KETOROLAC TROMETHAMINE INJ/PF 30 MG/1 ML SDV IV ONE (12:43)
--- NOTE | 2020-08-08 12:45 | ER Document Report ---
ED General - General Chief Complaint: Chest Pain Stated Complaint: CHEST PAIN Time Seen by Provider: 08/08/20 10:24 Primary Care Provider: EMELY GRIMES MD [ACTIVE STAFF] - Follow up in 3-5 days AVA CRUM MD [Primary Care Provider] - Follow up in 1 month Notes: Patient is a 50-year-old female who presents to the emergency department with a chief complaint of chest pain that has come and go for the past 3 to 4 days. States that she has a squeezing sensation in her chest. Patient has a history of pancreatitis. Denies any history of diabetes or alcohol consumption. States that she went to go get some steroid injections in her back for her arthritis and was also started on Celebrex. She was told that this may flareup her pancreatitis. Patient has history of cholecystectomy. Denies any abdominal pa in, other than epigastric pain. TRAVEL OUTSIDE OF THE [place] IN LAST 30 DAYS: No - Related Data Allergies/Adverse Reactions: clarithromycin [From Biaxin] Allergy (Intermediate, Verified 08/08/20 11:23) GI upset Home Medications: Amlodipine, premarin, trulance, famotadine, celebrex. Past Medical History - Social History Smoking Status: Former Smoker Chew tobacco use (# tins/day): No Drug Abuse: None Family History: Reviewed & Not Pertinent Patient has homicidal ideation: No - Past Medical History Cardiac Medical History: Reports: Hx Hypercholesterolemia, Hx Hypertension Denies: Hx Coronary Artery Disease, Hx Heart Attack Pulmonary Medical History: Denies: Hx Asthma, Hx Bronchitis, Hx COPD, Hx Pneumonia Neurological Medical History: Denies: Hx Cerebrovascular Accident, Hx Seizures Renal/ Medical History: Denies: Hx Peritoneal Dialysis Musculoskeletal Medical History: Reports Hx Arthritis Psychiatric Medical History: Reports: Hx Depression Past Surgical History: Reports: Hx Section - 3, Hx Cholecystectomy, Hx Hysterectomy, Other - PARTIAL HYSTERECTOMY - PATIENT STILL HAS OVARIES - Immunizations Hx Diphtheria, Pertussis, Tetanus Vaccination: Yes Review of Systems - Review of Systems Notes: REVIEW OF SYSTEMS: CONSTITUTIONAL : Denies recent illness. Denies recent unintentional weight loss. Denies fever, chills, or sweats. EENT: Denies eye, ear, throat, or mouth pain, discharge, or symptoms. Denies nasal or sinus congestion. CARDIOVASCULAR: See HPI. RESPIRATORY: Denies shortness of breath, cough, congestion, difficulty breathing, or wheezing. GASTROINTESTINAL: Denies nausea, vomiting, and diarrhea. Denies abdominal pain. Denies constipation. GENITOURINARY: Denies difficulty urinating, burning, blood in urine, urgency or frequency. MUSCULOSKELETAL: Denies neck and back pain. Denies joint pain or swelling. SKIN: Denies rash, itchiness, or lesions HEMATOLOGIC : Denies easy bruising or bleeding. LYMPHATIC: Denies swollen, painful, enlarged glands. NEUROLOGICAL: Denies no numbness or tingling denies weakness. Denies headache. Denies altered mental status. Denies alteration in speech. PSYCHIATRIC: Denies stress, anxiety, alteration in sleep patterns, or depression. All other systems reviewed and negative. Physical Exam - Vital signs Vitals: Temp Pulse Resp BP Pulse Ox 98.7 F 67 16 137/81 H 98 08/08/20 09:51 08/08/20 09:51 08/08/20 09:51 08/08/20 09:51 08/08/20 09:51 - Notes Notes: PHYSICAL EXAMINATION: GENERAL: Appears well, healthy, well-nourished, no acute distress. HEAD: Normocephalic, atraumatic. EYES: PERRL, conjunctiva normal, all extraocular movements intact, sclera nonicteric ENT: Moist mucous membranes. NECK: Supple, no noticeable swelling, redness, rash. Normal range of motion. LUNGS: Equal breath sounds bilaterally and clear to auscultation. No wheezes rales or rhonchi. CARDIOVASCULAR: S1-S2, regular rate, regular rhythm. Radial pulses 2+, normal. ABDOMEN: Normoactive bowel sounds. Soft, tender epigastric area. EXTREMITIES: Normal strength and range of motion, no pitting or edema. No cyanosis. NEUROLOGICAL: Moves all extremities upon command. Strength 5/5 in all extremities. PSYCH: Normal mood, normal affect. SKIN: Warm, dry. No rash, lesions, ulcerations noted. Normal skin turgor. Course - Re-evaluation Re-evalutation: 08/08/20 12:44 I was informed by the nurse that the patient was in more pain after receiving morphine. We will give her dose of Toradol. We will then reassess. 08/08/20 13:10 Patient had worsening pain with the Toradol. At this time, will attempt to admit the patient for management of pancreatitis. 08/08/20 13:[address] Brown, the hospitalist. He would like me to call Dr. Grimes, the patient's wireless field technician to discuss this case. 08/08/20 13:[address] Grimes and he states that Celebrex and steroid injections can cause pancreatitis. He states that the patient most likely needs to be admitted for treatment of her pancreatitis. CT of the abdomen pelvis will be ordered. 08/08/20 16:20 CT does not show pancreatitis. Dr. Brown evaluated patient. He states that the patient does not meet admission criteria. He would like me to start the patient on Carafate and have her follow-up with Dr. Grimes. Discussed this with the patient. She is in agreement with this plan. Follow-up precautions were given. Verbal discharge instructions were given to the patient. They verbalized understanding. They are stable for discharge. - Vital Signs Vital signs: Temp Pulse Resp BP Pulse Ox 98.0 F 67 19 170/80 H 100 08/08/20 16:00 08/08/20 09:51 08/08/20 16:00 08/08/20 16:00 08/08/20 16:00 - Laboratory Results Result Diagrams: 08/08/20 10:30 08/08/20 10:30 Laboratory Results Interpreted: 08/08/20 08/08/20 08/08/20 10:30 10:30 10:30 Seg Neutrophils % 40.1 L Sodium 136.1 L BUN 22 H Triglycerides 178 H Lipase 1002.5 H Critical Laboratory Results Reviewed: No Critical Results - Radiology Results Critical Radiology Results Reviewed: No Critical Results - EKG Interpretation by Me Additional EKG results interpreted by me: 08/08/20 Sinus rhythm. Rate 60. IL 160; QRS 98; QT 420; QTc 420. No ST elevations or depressions noted. Discharge - Discharge Clinical Impression: Abdominal pain, Chest pain Condition: Stable Disposition: HOME, SELF-CARE Additional Instructions: You were seen today in the emergency department for chest pain and epigastric pain. Follow-up with Dr. Grimes and your primary care provider in regards to this visit. You are being started on Carafate. If you feel this is not helping you, please return to the emergency department. Prescriptions: Sucralfate [Carafate 1 gm Tablet] 1 gm PO ACHS #120 tablet Forms: Return to Work Referrals: EMELY GRIMES MD [ACTIVE STAFF] - Follow up in 3-5 days AVA CRUM MD [Primary Care Provider] - Follow up in 1 month
[2020-08-08] MEDS ORDERED: ONDANSETRON HCL INJ/PF 4 MG/2 ML SDV IV ONE (12:56)
--- NOTE | 2020-08-08 14:33 | RADIOLOGY REPORT (SQ) ---
EXAM DESCRIPTION: CT ABD/PELVIS WITH IV ONLY IMAGES COMPLETED DATE/TIME: 08/08/2020 2:09 pm REASON FOR STUDY: eval pancreatitis COMPARISON: CT of the abdomen and pelvis from 01/26/2020. TECHNIQUE: CT scan of the abdomen and pelvis performed using helical scanning technique with dynamic intravenous contrast injection. No oral contrast. Images reviewed with lung, soft tissue, and bone windows. Reconstructed coronal and sagittal MPR images reviewed. Delayed images for evaluation of the urinary system also acquired. All images stored on PACS. All CT scanners at this facility use dose modulation, iterative reconstruction, and/or weight based d osing when appropriate to reduce radiation dose to as low as reasonably achievable (ALARA). [facility]: Dose Right [facility]: CareDose [facility]: Dose Right [facility]: Teradose 4D [facility]: [employer] CONTRAST TYPE AND DOSE: Contrast/concentration: Isovue mmol/ml; Total Contrast Delivered: 99.0 ml; Total Saline Delivered: 71.0 ml RENAL FUNCTION: GFR > 60. RADIATION DOSE: CT Rad equipment meets quality standard of care and radiation dose reduction techniq ues were employed. CTDIvol: 17.1 - 20.3 mGy. DLP: 2158 mGy-cm. LIMITATIONS: None. FINDINGS: LOWER CHEST: No acute abnormality. LIVER: The morphology of the liver is noncirrhotic. The nodular area of hyperenhancement in the righ t hepatic lobe (image 26 of series 3) that equilibrates with the parenchyma on the delayed phase coul d represent a flash filling hemangioma or a vascular shunt. The portal veins are patent. SPLEEN: No splenomegaly or splenic mass. PANCREAS: No acute gross abnormality of the pancreas. GALLBLADDER: Surgically absent. There is no dilatation of the intrahepatic ducts. ADRENAL GLANDS: Stable bilateral adrenal nodules that on the left measure up to 17 x 15 mm. RIGHT KIDNEY AND URETER: No solid mass, hydronephrosis, nephrolithiasis, hydroureter ureterolithiasis . LEFT KIDNEY AND URETER: No solid mass, hydronephrosis, nephrolithiasis, hydroureter ureterolithiasis. AORTA AND VESSELS: No aneurysm of the abdominal aorta. RETROPERITONEUM: No retroperitoneal adenopathy, hemorrhage or mass. BOWEL AND PERITONEAL CAVITY: Colonic diverticulosis without diverticulitis. There is no bowel obstru ction, bowel wall thickening or pericolonic/ perienteric inflammation. There is no mesenteric adenop athy, free intraperitoneal fluid or mesenteric/omental inflammation. APPENDIX: Normal. PELVIS: The uterus is surgically absent. There is no adnexal mass. The urinary bladder is distended and normal in appearance. ABDOMINAL WALL: No mass or hernia. BONES: No acute abnormality. OTHER: No other finding. IMPRESSION: 1. No acute intra-abdominal abnormality. 2. Other secondary nonemergent findings as detailed above. TECHNICAL DOCUMENTATION: JOB ID: [id number] Quality ID # [id number]: Final reports with documentation of one or more dose reduction techniques (e.g., Au tomated exposure control, adjustment of the mA and/or kV according to patient size, use of iterative reconstruction technique) 2010 [employer]- All Rights Reserved Reading location - IP/workstation name: [email or web address]
--- NOTE | 2020-08-08 16:30 | PDOC CONSULTATION ---
Consultation Consult Date: 08/08/20 Attending physician:: BRODY BATES Provider Consulted: DANIEL DOUGLASS Consult reason:: elevated lipase. Concern for pancreatitis? History of Present Illness Admission Date/PCP: AVA CRUM MD Patient complains of: Chest pain History of Present Illness: SERGIO RIVERA is a 50 year old female with history of gastritis, ?pancreatitis, osteoarthritis, IBS-C who presents to the hospital for evaluation of chest pain that started last week. Patient reports receiving a steroid injection to her left shoulder today before the onset of her symptoms. She also has been on Celebrex for about a month. She describes her chest pain is parasternal, aching currently /10 but got as bad as /10, no relationship to exertion or rest, and radiating to her epigastrium. She states that she has had this in the past and was told that she had pancreatitis at which time her lipase was elevated. However there has been no cause for her pancreatitis determined. She states she was actually referred to [facility] for evaluation of her pancreatitis and they found nothing in the past. She denies any history of heart disease. States that she had a stress test a few years back that was negative. She rece[place] morphine in the ER and the pain got worse actually. Abdominal pain is noted to be mild at the most. Past Medical History Cardiac Medical History: Reports: Hyperlipidema, Hypertension Denies: Coronary Artery Disease, Myocardial Infarction Pulmonary Medical History: Denies: Asthma, Bronchitis, Chronic Obstructive Pulmonary Disease (COPD), Pneumonia Neurological Medical History: Denies: Seizures Musculoskeltal Medical History: Reports: Arthritis Psychiatric Medical History: Reports: Depression Hematology: Denies: Anemia Past Surgical History Past Surgical History: Reports: Section - 3, Cholecystectomy, Hysterectomy, Other - PARTIAL HYSTERECTOMY - PATIENT STILL HAS OVARIES Social History Smoking Status: Former Smoker Electronic Cigarette use?: No Frequency of Alcohol Use: None Hx Recreational Drug Use: No Drugs: None Hx Prescription Drug Abuse: No Family History Family History: Hypertension Parental Family History Reviewed: Yes Children Family History Reviewed: Yes Sibling(s) Family History Reviewed.: Yes Medication/Allergy Home Medications: Atorvastatin Calcium [Lipitor 20 mg Tablet] 20 mg PO QHS 04/29/19 Estrogens,Conjugated [Premarin 0.3 mg Tablet] 0.3 mg PO DAILY 04/29/19 Fluticasone Propionate [Flonase Nasal Ophelia 50 Mcg/Ophelia 16 gm] 1 spray NAREB DAILY 04/29/19 Lisinopril/Hydrochlorothiazide [Lisinopril-Hctz 20-25 mg Tab] 1 tab PO DAILY 04/29/19 Montelukast Sodium [Singulair 10 mg Tablet] 10 mg PO QHS 04/29/19 Omeprazole 20 mg PO DAILY 04/29/19 Biotin 1 tab PO DAILY 05/12/19 Cetirizine HCl [Zyrtec 10 mg Tablet] 1 tab PO DAILY 05/12/19 Multivitamin [Multiple Vitamins] 1 each PO DAILY 05/12/19 [place]-3 Fatty Acids/Fish Oil [Fish Oil 1,000 mg Capsule] 1 cap PO DAILY 05/12/19 Pregabalin 50 mg PO DAILY 05/12/19 Hydrocodone/Acetaminophen [Clymer 5-325 mg Tablet] 1 tab PO Q6H PRN #10 tablet 01/26/20 Ondansetron [Zofran Odt 4 mg Tablet] 4 mg PO Q8H PRN #10 tab.rapdis 01/26/20 Tamsulosin HCl [Flomax] 0.4 mg PO DAILY #30 capsule 01/26/20 Sucralfate [Carafate 1 gm Tablet] 1 gm PO ACHS #120 tablet 08/08/20 Allergies/Adverse Reactions: clarithromycin [From Biaxin] Allergy (Intermediate, Verified 08/08/20 11:23) GI upset Review of Systems Constitutional: ABSENT: fatigue, fever(s) Eyes: ABSENT: visual disturbances Ears: ABSENT: hearing changes Nose, Mouth, and Throat: ABSENT: sore throat Cardiovascular: PRESENT: chest pain. ABSENT: dyspnea on exertion, edema, orthropnea, palpitations Respiratory: ABSENT: cough, dyspnea, sputum Gastrointestinal: ABSENT: diarrhea, dysphagia, heartburn, hematemesis, hematochezia, melena, nausea, vomiting Musculoskeletal: ABSENT: joint swelling Integumentary: ABSENT: diaphoresis Neurological: ABSENT: dizziness Endocrine: ABSENT: polyuria Allergic/Immunologic: ABSENT: seasonal rhinorrhea Physical Exam Vital Signs: Temp Pulse Resp BP Pulse Ox 98.7 F 67 16 137/81 H 99 08/08/20 09:51 08/08/20 09:51 08/08/20 09:51 08/08/20 09:51 08/08/20 10:28 Intake & Output 08/07/20 08/08/20 08/09/20 06:59 06:59 06:59 Intake Total 1000 Balance 1000 Weight 104 kg General appearance: PRESENT: no acute distress, cooperative Mouth exam: PRESENT: neck supple Neck exam: ABSENT: JVD Respiratory exam: PRESENT: clear to auscultation halima, symmetrical, unlabored. ABSENT: chest wall tenderness, tachypnea, wheezes Cardiovascular exam: PRESENT: RRR, +S1, +S2. ABSENT: diastolic murmur, systolic murmur, tachycardia GI/Abdominal exam: PRESENT: soft, tenderness - only mildly tender at the upmost epigastrium right below the sternum. Rest of the abdomen is nontender at all.. ABSENT: distended, firm, guarding, rebound, rigid Extremities exam: ABSENT: calf tenderness, pedal edema Neurological exam: PRESENT: alert, awake, oriented to person, oriented to place, oriented to time, oriented to situation Psychiatric exam: ABSENT: agitated, anxious Focused psych exam: ABSENT: pressured speech Skin exam: ABSENT: jaundice Results Laboratory Results: 08/08/20 10:30 08/08/20 10:30 08/08/20 08/08/20 08/08/20 10:30 10:30 10:30 WBC 6.9 RBC 4.63 Hgb 13.7 Hct 41.0 MCV 88 MCH 29.5 MCHC 33.3 RDW 13.4 Plt Count 280 Seg Neutrophils % 40.1 L Sodium 136.1 L Potassium 4.6 Chloride 104 Carbon Dioxide 26 Anion Gap 6 BUN 22 H Creatinine 0.79 Est GFR ( Amer) > 60 Glucose 105 Calcium 9.9 Total Bilirubin 0.4 AST 27 Alkaline Phosphatase 79 Total Protein 7.3 Albumin 4.3 Triglycerides 178 H Lipase 1002.5 H 08/08/20 08/08/20 10:30 10:30 Troponin I < 0.012 Cancelled Impressions: Chest X-Ray 08/08/20 10:28 IMPRESSION: No acute cardiopulmonary process. Abdomen/Pelvis CT 08/08/20 13:44 IMPRESSION: 1. No acute intra-abdominal abnormality. 2. Other secondary nonemergent findings as detailed above. Assessment and Plan - Diagnosis (1) Chest pain Qualifiers: Chest pain type: other chest pain Qualified Code(s): R07.89 - Other chest pain; R07.8 - Other chest pain Is this a current diagnosis for this admission?: Yes (2) Elevated lipase Is this a current diagnosis for this admission?: Yes (3) GERD (gastroesophageal reflux disease) Is this a current diagnosis for this admission?: Yes - Plan Summary Summary: Patient's presenting symptom is chest pain with very mild involvement of the epigastrium. Liver enzymes are unimpressive. Abdominal CT is essentially unremarkable and shows no pancreatic disease. I also reviewed all her previous abdominal CTs here and none of them have ever shown pancreatitis. It is unclear what is causing her lipase elevation but pancreatitis doesn't seem to be the issue currently Her current presentation is more consistent with GERD and likely gastritis being triggered by her recent steroid injection and the use of NSAIDs. She is on Pepcid 20 mg twice daily. She states she used omeprazole in the past but it caused her to have an SHAISTA so it was discontinued. PPIs do sometimes cause acute interstitial nephritis. In that case, will recommend addition of Carafate. 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 Chest x-ray is unremarkable. EKG shows no new ischemic changes. Troponin is negative x1. Would recommend outpatient follow-up with a PCP for further evaluation and monitoring of patient's symptoms. She may need further work up for extrapancreatic causes of lipase elevation by her PCP or gasteroenterologist. She feels better now and pain is down to 4/10 and tolerating po. She does not require admission at this time. Discussed with ER provider - Time Time Spent with patient: 35 or more minutes Anticipated Discharge Disposition: Home, Self Care Anticipated Discharge Timeframe: within 24 hours
[2020-08-08 17:02] VITALS: BP 170/80
--- NOTE | 2020-08-08 18:18 | EKG REPORT ---
SEVERITY:- BORDERLINE ECG - SINUS RHYTHM PROBABLE LEFT ATRIAL ABNORMALITY : Confirmed by: Herlinda Granger MD 08-Aug-2020 18:16:32
== END 2020-08-08 17:13 | disposition home or self-care (01) ==
LOC: ER 09:43
DX: K58.1 Irritable bowel syndrome with constipation (principal); K21.9 Gastro-esophageal reflux disease without esophagitis; R10.13 Epigastric pain; R10.816 Epigastric abdominal tenderness; R07.9 Chest pain, unspecified; R79.89 Other specified abnormal findings of blood chemistry; M19.90 Unspecified osteoarthritis, unspecified site; I10 Essential (primary) hypertension; E78.00 Pure hypercholesterolemia, unspecified; E78.5 Hyperlipidemia, unspecified; Z79.899 Other long term (current) drug therapy; Z79.1 Long term (current) use of non-steroidal anti-inflammatories (NSAID); Z87.19 Personal history of other diseases of the digestive system; Z87.891 Personal history of nicotine dependence; Z88.1 Allergy status to other antibiotic agents; Z90.49 Acquired absence of other specified parts of digestive tract; Z90.711 Acquired absence of uterus with remaining cervical stump
CPT/HCPCS: 93005; 99285; 96361; 96374; 96375; 36415; 83690; 84478; 85025; 80053; 84484; 71045; 74177; 93010; J1885; J2270; J2405; J7030

== ENCOUNTER 2020-08-12 11:28 | Day surgery (SDC) | payer BC ==
[2020-08-12] MEDS ORDERED: PROPOFOL INJ 200 MG/20 ML VIAL IV ONE (13:56)
[2020-08-12] MEDS ORDERED: LIDOCAINE 2% INJ (20 MG/ML) 20 ML MDV ONE (13:56)
--- NOTE | 2020-08-12 15:01 | Operative Report ---
Operative Report DATE OF SURGERY: 08/12/20 Operative Report: Pre-op diagnosis: Chest pain Post-op diagnosis: 1. Small duodenal ulcer with duodenitis Surgery: Esophagogastroduodenoscopy with biopsy Medications: As per anesthesia Tissue removed: Antral, gastric body, and esophageal biopsy for pathology Procedure: After informed consent obtained from patient, the throat was sprayed with Hurricane and conscious sedation was achieved. The upper endoscope was inserted into the esophagus under direct vision and advanced into the stomach. The duodenum was entered and examined to the second part. Endoscope was then slowly pulled out of the patient as the mucosa was examined into details. Patient tolerated procedure well. Findings Esophagus: Normal Z-line at: 40 cm. Biopsies were taken from the distal and proximal esophagus to rule out eosinophilic esophagitis Antrum: Normal Body: Normal Fundus: Normal Duodenum first part: Mild erythema was noted. A 2 mm ulcer was noted at the duodenal bulb. Duodenum second part: Normal Plan: Await pathology. Will use pantoprazole or lansoprazole daily for 2 months. OPERATION: .
[2020-08-12 15:35] VITALS: BP 129/88
== END 2020-08-12 15:54 | disposition home or self-care (01) ==
LOC: OROUT 11:28
PROVIDERS: ATTEND Internal Medicine Gastroenterology
DX: K29.50 Unspecified chronic gastritis without bleeding (principal); K26.9 Duodenal ulcer, unspecified as acute or chronic, without hemorrhage or perforation; K59.04 Chronic idiopathic constipation; Z01.812 Encounter for preprocedural laboratory examination; Z20.822 Contact with and (suspected) exposure to COVID-19; Z90.710 Acquired absence of both cervix and uterus; Z87.19 Personal history of other diseases of the digestive system; Z90.49 Acquired absence of other specified parts of digestive tract; K21.9 Gastro-esophageal reflux disease without esophagitis; Z79.899 Other long term (current) drug therapy; I10 Essential (primary) hypertension; Z87.442 Personal history of urinary calculi; Z87.891 Personal history of nicotine dependence
CPT/HCPCS: 43239; 36415; 0241U; 88305 ×2; 00731; J3490; J2704; C9803; 731